=== PATIENT | male | born 1935 | race Caucasian/White ===

== ENCOUNTER 2021-09-10 06:52 | Emergency (ER) | payer OTHER, SELFPAY ==
[2021-09-10 06:55] VITALS: PULSE 78; RESP 17
[2021-09-10 06:57] VITALS: BP 179/78; PULSE 73; RESP 17; TEMP 36.8; O2SAT 97
--- NOTE | 2021-09-10 07:26 | ED.EPISTAXIS ---
HPI - Epistaxis General Chief complaint: Epistaxis Stated complaint: nose bleed Time Seen by Provider: 09/10/21 07:24 Source: patient Related Data Home Medications Medication Instructions Recorded Confirmed allopurinol 09/10/21 amlodipine-valsartan tablet 09/10/21 atorvastatin 09/10/21 nitroglycerin mg 09/10/21 rivaroxaban [Xarelto] mg 09/10/21 tamsulosin mg PO 09/10/21 valsartan 09/10/21 Allergies Allergy/AdvReac Type Severity Reaction Status Date / Time No Known Allergies Allergy Verified 09/10/21 06:59 Course Vital Signs Vital signs: Vital Signs Pulse Rate 78 09/10/21 06:55 Respiratory Rate 17 09/10/21 06:55 Temperature 36.8 C 09/10/21 06:57 Pulse Rate 73 09/10/21 06:57 Respiratory Rate 17 09/10/21 06:57 Blood Pressure 179/78 H 09/10/21 06:57 Pulse Oximetry 97 09/10/21 06:57 Discharge Plan Discharge Prescriptions: No Action atorvastatin 40 mg tablet RF: 0 tamsulosin 0.4 mg capsule PO RF: 0 nitroglycerin 0.4 mg tablet, sublingual RF: 0 allopurinol 300 mg tablet RF: 0 valsartan 160 mg tablet RF: 0 amlodipine-valsartan 5-160 mg tablet RF: 0 Xarelto 20 mg tablet RF: 0
--- NOTE | 2021-09-10 07:47 | ED.EPISTAXIS ---
HPI - Epistaxis General Chief complaint: Epistaxis Stated complaint: nose bleed Time Seen by Provider: 09/10/21 07:24 Source: patient and family Mode of arrival: ambulatory Limitations: no limitations History of Present Illness HPI Narrative: Patient presents with left nasal bleed started few minutes prior to arrival to the emergency room. Stopped on arrival. Currently patient on Xarelto. Patient denies any trauma Related Data Home Medications Medication Instructions Recorded Confirmed allopurinol 09/10/21 amlodipine-valsartan tablet 09/10/21 atorvastatin 09/10/21 nitroglycerin mg 09/10/21 rivaroxaban [Xarelto] mg 09/10/21 tamsulosin mg PO 09/10/21 valsartan 09/10/21 Allergies Allergy/AdvReac Type Severity Reaction Status Date / Time No Known Allergies Allergy Verified 09/10/21 06:59 Review of Systems Review of Systems: CONSTITUTIONAL: Denies fever, chills, or sweats. EYES: Denies visual changes, redness, or discharge. ENT: Denies rhinorrhea, congestion, sore throat, or otalgia. CARDIOVASCULAR: Denies chest pain, palpitations, or edema. RESPIRATORY: Denies cough or dyspnea. GASTROINTESTINAL: Denies abdominal pain, nausea, vomiting, or diarrhea. GENITOURINARY: Denies dysuria or hematuria. SKIN: Denies rash or itching. MUSCULOSKELETAL: Denies back pain, joint pain, or myalgia. NEUROLOGIC: Denies headache, numbness, or weakness. PSYCHIATRIC: Denies anxiety or depression. Exam Narrative: General appearance: Well-developed, well-nourished Skin: Normal color Head: Normocephalic, nontraumatic Eyes: Clear conjunctiva ENT: Oropharynx normal, ears normal, nasal exam showed dried scant blood anteriorly. No active bleeding Chest and respiratory: Airway patent, no respiratory distress, no accessory muscle use Heart: Regular rate/rhythm Neurologic: Alert and oriented ?3, MICROBIOLOGY LAB ANALYST is normal as tested, no gross motor deficit Course Course Emergency Course: Improved Vital Signs Vital signs: Vital Signs Pulse Rate 78 09/10/21 06:55 Respiratory Rate 17 09/10/21 06:55 Temperature 36.8 C 09/10/21 06:57 Pulse Rate 73 09/10/21 06:57 Respiratory Rate 17 09/10/21 06:57 Blood Pressure 179/78 H 09/10/21 06:57 Pulse Oximetry 97 09/10/21 06:57 Procedures Epistaxis Control left: Epistaxis Control Date: 09/10/21 Epistaxis Control Time: 07:58 Time Out Performed: Yes (5 minutes) Direct Inspection: yes and unable to visualize Cautery Used: none Device Inserted: hemostatic balloon Patient Tolerated Procedure: well MDM - Epistaxis MDM Narrative Medical decision making narrative: CBC ordered. Patient requested nasal packing. Lab Data Result diagrams: 09/10/21 07:51 Labs: Lab Results 09/10/21 Range/Units 07:51 WBC 6.1 (4.5-10.0) K/mm3 RBC 4.09 L (4.6-6.20) M/mm3 Hgb 13.4 L (14.0-18.0) g/dL Hct 38.2 L (42.0-52.0) % MCV 93.4 (80-100) fl MCH 32.8 (26-34) pg MCHC 35.1 (32-36) g/dl RDW 12.6 (11.5-14.5) % Plt Count 211 (150-375) k/mm3 MPV 8.9 (7.4-10.4) fl Immature Gran % (Auto) 0.2 (0-0.5) % Neut % (Auto) 65.8 (45.5-73.1) % Lymph % (Auto) 26.9 (18.3-44.2) % [place] % (Auto) 5.7 (2.6-8.5) % Eos % (Auto) 1.1 (0-4.4) % Baso % (Auto) 0.3 (0.2-1.2) % Lymph # (Auto) 1.64 (0.9-3.2) K/mm3 [place] # (Auto) 0.4 (0.1-0.6) K/mm3 Eos # (Auto) 0.1 (0-0.3) K/mm3 Baso # (Auto) 0.0 (0.0-0.1) K/mm3 Abs Immat Gran (auto) 0.01 (0.00-0.031) K/mm3 Absolute Neuts (auto) 4.0 (1.3-6.7) K/mm3 Absolute Nucleated RBC 0.0 (0.0-0.012) K/mm3 Nucleated RBC % 0.0 (0.0-0.2) % Critical Care Time Critica
--- NOTE | 2021-09-10 07:54 | PC.NURSE ---
Dr. Yanes removed nasal clamp, no bleeding present, Dr. Yanes applied rhino rocket 7.5 in patients nose, pt tolerated well will monitor for 30mins, pt aware
[2021-09-10 07:56] LABS: Basophils Percent Auto 0.3 % (0.2-1.2); Eosinophils Absolute Auto 0.1 K/mm3 (0-0.3); Eosinophils Percent Auto 1.1 % (0-4.4); Hematocrit 38.2 % (42.0-52.0); Hemoglobin 13.4 g/dL (14.0-18.0); Immature Granulocyte Absolute 0.01 K/mm3 (0.00-0.031); Immature Granulocyte Percent A 0.2 % (0-0.5); Lymphocytes Absolute Auto 1.64 K/mm3 (0.9-3.2); Lymphocytes Percent Auto 26.9 % (18.3-44.2); Mean Corpuscular HGB Conc 35.1 g/dl (32-36); Mean Corpuscular Hemoglobin 32.8 pg (26-34); Mean Corpuscular Volume 93.4 fl (80-100); Mean Platelet Volume 8.9 fl (7.4-10.4); Monocytes Absolute Auto 0.4 K/mm3 (0.1-0.6); Monocytes Percent Auto 5.7 % (2.6-8.5); Neutrophils Percent Auto 65.8 % (45.5-73.1); Platelet Count Result 211 k/mm3 (150-375); Red Blood Count 4.09 M/mm3 (4.6-6.20); Red Cell Distribution Width 12.6 % (11.5-14.5); White Blood Count 6.1 K/mm3 (4.5-10.0)
[2021-09-10 08:41] VITALS: BP 172/73; PULSE 56; RESP 18; O2SAT 99
== END 2021-09-10 08:43 | disposition home or self-care (01) ==
PROVIDERS: Emergency Provider Emergency Medicine; PCP Internal Medicine
DX: R04.0 Epistaxis (principal); Z79.01 Long term (current) use of anticoagulants
CPT/HCPCS: 30901; 36415; 85025; 99283

== ENCOUNTER 2021-10-24 18:38 | Emergency (ER) | payer OTHER, SELFPAY ==
--- NOTE | ~2021-10-24 | XR_ITS ---
EXAMINATION: XR chest 2V DATE: 10/24/2021 19:13 INDICATION: Fatigue and cough TECHNIQUE: PA and lateral views of the chest are obtained. COMPARISON: 07/17/2016 FINDINGS: There are minimal opacities of the lung bases. There is no pleural effusion or pneumothorax . The heart size is normal. There are changes of interval cardiac surgery. There is moderate thoracic spondylosis. IMPRESSION: 1. Minimal bibasilar airspace opacities, consistent with atelectasis versus pneumonia. Reviewed, dictated and finalized at location F. GER REPORT IMPRESSION: 1. Minimal bibasilar airspace opacities, consistent with atelectasis versus pne umonia.
[2021-10-24 18:56] VITALS: BP 107/48; PULSE 69; RESP 16; TEMP 37.3; O2SAT 97
[2021-10-24 19:24] LABS: Alanine Aminotransferase 34 U/L (4-50); Albumin Level 3.4 g/dL (3.5-5.1); Alkaline Phosphatase 227 U/L (38-126); Anion Gap 8 mmol/L (8-16); Aspartate Amino Transferase 48 U/L (17-59); Bilirubin,Total 1.3 mg/dL (0.2-1.3); Blood Urea Nitrogen 21 mg/dL (9-20); Calcium 8.7 mg/dL (8.4-10.2); Carbon Dioxide 24 mmol/L (22-30); Chloride 99 mmol/L (98-107); Estimated CRCL calculation 44 ml/min; Estimated Glomerular Filt Rate > 60; Glucose 138 mg/dL (65-110); Potassium 4.5 mmol/L (3.4-5.0); Sodium 131 mmol/L (137-145)
[2021-10-24 19:25] LABS: Hematocrit 40.8 % (42.0-52.0); Hemoglobin 13.8 g/dL (14.0-18.0); Mean Corpuscular HGB Conc 33.8 g/dl (32-36); Mean Corpuscular Hemoglobin 31.9 pg (26-34); Mean Corpuscular Volume 94.2 fl (80-100); Mean Platelet Volume 9.8 fl (7.4-10.4); Platelet Count Result 222 k/mm3 (150-375); Red Blood Count 4.33 M/mm3 (4.6-6.20); Red Cell Distribution Width 12.8 % (11.5-14.5); White Blood Count 7.5 K/mm3 (4.5-10.0)
[2021-10-24 19:51] LABS: Band Neutrophils Percent 6 % (0-6); Lymphocytes Absolute Manual 0.82 K/mm3 (1.1-4.5); Monocytes Absolute Manual 0.37 K/mm3 (0.1-0.90); Monocytes Percent Manual 5 % (3-9); Neutrophils Percent Manual 78 % (46-73); Platelet Estimate Adequate (Adequate); Total Cells Counted 100
[2021-10-24 21:48] VITALS: BP 106/49; PULSE 66; RESP 18; TEMP 36.5; O2SAT 98
[2021-10-24 22:55] VITALS: BP 119/67; PULSE 64; RESP 18; O2SAT 99
[2021-10-24 23:38] VITALS: BP 102/61; PULSE 63; PULSE 65; RESP 18; O2SAT 97
[2021-10-24] MEDS: SODIUM CHLORIDE 0.9% IV 1,000 ML 999 ML IV CONT (23:53)
[2021-10-25 00:15] VITALS: BP 116/62; PULSE 62; RESP 12; O2SAT 97
[2021-10-25 00:45] VITALS: BP 131/63; PULSE 62; RESP 14; O2SAT 98
--- NOTE | 2021-10-25 00:55 | ED.GENADULT ---
HPI - General Adult General Chief complaint: Weakness Stated complaint: COVID PERSISENT SYMPTOMS Time Seen by Provider: 10/24/21 23:15 History of Present Illness HPI narrative: Patient is 85-year-old gentleman who presents the emergency department with chief complaint of generalized weakness. The patient reports he was diagnosed with COVID-19 on 12 October. Patient states that he has still had a cough has been having generalized weakness. Patient states that his fevers are doing better reports that he feels like he may be dehydrated because he had a lot of diarrhea during all of this. Patient denies chest pain denies shortness of breath. Related Data Home Medications Medication Instructions Recorded Confirmed allopurinol 09/10/21 amlodipine-valsartan tablet 09/10/21 atorvastatin 09/10/21 nitroglycerin mg 09/10/21 rivaroxaban [Xarelto] mg 09/10/21 tamsulosin mg PO 09/10/21 valsartan 09/10/21 Allergies Allergy/AdvReac Type Severity Reaction Status Date / Time No Known Allergies Allergy Verified 09/10/21 06:59 Review of Systems Review of Systems: A 10 system review of systems was completed on the patient and is negative except for what is stated in the HPI. Nursing and ancillary documentation was reviewed. Exam Narrative: GENERAL: Well-appearing, well-nourished, and in no acute distress. HEAD: Normocephalic, atraumatic. EYES: PERRLA and EOMI. ENT: Nares clear, no rhinorrhea or epistaxis. Mucous membranes moist. NECK: Supple. CHEST: Clear to auscultation. No respiratory distress. HEART: Regular rate and rhythm. No murmur heard. Normal peripheral pulses. ABDOMEN: Soft, nontender, nondistended, normal active bowel sounds. EXTREMITIES: Normal range of motion. No edema. SKIN: Warm, dry, no rash. NEURO: No focal deficits. Alert and oriented x3. PSYCH: Normal mood and affect. Course Vital Signs Vital signs: Vital Signs Temperature 37.3 C 10/24/21 18:56 Pulse Rate 69 10/24/21 18:56 Respiratory Rate 16 10/24/21 18:56 Blood Pressure 107/48 L 10/24/21 18:56 Pulse Oximetry 97 10/24/21 18:56 Temperature 36.5 C 10/24/21 21:48 Pulse Rate 62 10/25/21 00:45 Respiratory Rate 14 10/25/21 00:45 Blood Pressure 131/63 10/25/21 00:45 Pulse Oximetry 98 10/25/21 00:45 Medical Decision Making Vital Signs Vital Signs: Vital Signs Temperature 37.3 C 10/24/21 18:56 Pulse Rate 69 10/24/21 18:56 Respiratory Rate 16 10/24/21 18:56 Blood Pressure 107/48 L 10/24/21 18:56 Pulse Oximetry 97 10/24/21 18:56 Temperature 36.5 C 10/24/21 21:48 Pulse Rate 62 10/25/21 00:45 Respiratory Rate 14 10/25/21 00:45 Blood Pressure 131/63 10/25/21 00:45 Pulse Oximetry 98 10/25/21 00:45 Lab Data Result diagrams: 10/24/21 19:06 10/24/21 19:06 Labs: Lab Results 10/24/21 10/24/21 Range/Units 19:06 19:06 WBC 7.5 (4.5-10.0) K/mm3 RBC 4.33 L (4.6-6.20) M/mm3 Hgb 13.8 L (14.0-18.0) g/dL Hct 40.8 L (42.0-52.0) % MCV 94.2 (80-100) fl MCH 31.9 (26-34) pg MCHC 33.8 (32-36) g/dl RDW 12.8 (11.5-14.5) % Plt Count 222 (150-375) k/mm3 MPV 9.8 (7.4-10.4) fl Immature Gran % (Auto) Not Reportable Neut % (Auto) Not Reportable Lymph % (Auto) Not Reportable [place] % (Auto) Not Reportable Eos % (Auto) Not Reportable Baso % (Auto) Not Reportable Lymph # (Auto) Not Reportable [place] # (Auto) Not Reportable Eos # (Auto) Not Reportable Baso # (Auto) Not Reportable Abs Immat Gran (auto) Not Reportable Absolute Neuts (auto) Not Reportable Absolute Nucleated RBC Not Reportable Total Counted 100 Neutrophils % (Manual) 78 H (46-73) % Band Neutrophils % 6 (0-6) % Lymphocytes % (Manual) 11.0 L (18-44) % Monocytes % (Manual) 5 (3-9) % Nucleated RBC % Not Reportable Abs Neuts (Manual) 6.30 (1.3-6.7) K/mm3 Abs Lymphs (Manual) 0.82
--- NOTE | 2021-10-25 01:30 | PC.NURSE ---
Ambulatory assessment with pulse ox, no desaturations noted. Pt reports improvement.
[2021-10-25 01:43] VITALS: BP 105/63; PULSE 68; RESP 12; O2SAT 98
== END 2021-10-25 01:45 | disposition home or self-care (01) ==
PROVIDERS: Emergency Medicine; Emergency Provider Emergency Medicine; PCP Internal Medicine
DX: U07.1 COVID-19 (principal); J12.82 Pneumonia due to coronavirus disease 2019
CPT/HCPCS: 36415; 71046; 80053; 85025; 96360; 99284; J7030

== ENCOUNTER 2021-10-25 19:05 | Inpatient (IN) | payer OTHER, SELFPAY ==
[2021-10-25] VITALS (8 sets, daily range): BP systolic 137–163; BP diastolic 73–82; PULSE 60–66; RESP 12–20; TEMP 36.6–36.8; O2SAT 98–100; BMI 28.3
--- NOTE | ~2021-10-25 | XR_ITS ---
EXAMINATION: XR UGIAC w small bowel EXAM DATE: 10/27/2021 13:46 INDICATION: Weight loss, esophageal stricture. TECHNIQUE: Image Scientist radiograph was acquired. Single contrast barium upper GI with small bowel was initia lly requested. Patient was believed to be able to tolerate double contrast exam and so this was perfo rmed according to patient abilities. Upper GI examination and small bowel series was performed by rad iologist Jai Purdy M.D. Pulsed dose reduction fluoroscopy was used with fluoroscopic time of 0.2 m inutes. The DAP for this procedure was 0.4 Gycm2. A total of 51 images obtained for the exam. Ther e is no prior study for comparison. FINDINGS: There are some tertiary contractions, mild presbyesophagus. The distal aspect of the esopha jerson did appear somewhat diffusely narrowed without shouldering to suggest any underlying mass. The st omach has a normal appearance without evidence of mass lesion, ulceration or filling defect. There i s normal rugal fold pattern. The duodenum and duodenal sweep are normal in appearance. Ileal and jejunal fold patterns are normal. There is no small bowel wall thickening or mass effect d isplacing small bowel. There are no intraluminal filling defects identified. There is no small teofilo l dilation. Terminal ileum is normal in appearance. Contrast reached the colon by 30 minutes time. IMPRESSION: Mild presbyesophagus. Mild diffuse narrowing distal esophagus without shouldering to sugg est underlying aspirate, could be reflux related narrowing. Unremarkable small bowel exam. Reviewed, dictated and finalized at location A. HANGER IMPRESSION: Mild presbyesophagus. Mild diffuse narrowing distal esophagus witho ut shouldering to suggest underlying aspirate, could be reflux related narrowin g. Unremarkable small bowel exam.
--- NOTE | ~2021-10-25 | XR_ITS ---
EXAMINATION: XR chest 1V portable DATE: 10/27/2021 07:05 INDICATION: Cough. Weight loss. TECHNIQUE: A single frontal view of the chest was obtained. COMPARISON: Chest single view 10/25/2021, chest 2 views 10/24/2021, chest CT 02/09/2018 FINDINGS: There are patchy airspace opacities in all lung zones bilaterally. No pleural effusion or p neumothorax. The heart size is normal. Median sternotomy wires are noted. IMPRESSION: 1. Stable diffuse lung disease, consistent with COVID-19 pneumonia. Reviewed, dictated and finalized at location B. OLEUM REFINING EQUIPMENT OPERATOR
--- NOTE | ~2021-10-25 | XR_ITS ---
EXAMINATION: XR chest 1V portable INDICATION: Midsternal chest pain, COVID 19 positive TECHNIQUE: Portable AP chest at 1923 hours COMPARISON: 10/24/2021 FINDINGS: Bibasilar airspace opacities persist without significant change. There are also minimal air space opacities in the mid and upper lung zones better appreciated on today's examination. There is n o pleural effusion or pneumothorax. The heart size is normal. Changes of cardiac surgery are noted. IMPRESSION: 1. Mild diffuse lung disease, likely pneumonia. Reviewed, dictated and finalized at location F. COIN DEALER
--- NOTE | 2021-10-25 19:17 | ECG_ITS ---
Measurements Intervals [place] Rate: 61 P: -87 FL: 164 QRS: -52 QRSD: 97 T: -13 QT: 397 QTc: 400 Interpretive Statements ECTOPIC ATRIAL RHYTHM INCOMPLETE RIGHT BUNDLE BRANCH BLOCK LEFT ANTERIOR FASCICULAR BLOCK HIGH LATERAL ST ELEVATION MYOCARDIAL INJURY- ACUTE ABNORMAL ECG Electronically Signed On 10-25-2021 20:21:14 SENIOR GAME ADVISOR by Amari Valera D.O.
[2021-10-25] MEDS: HEPARIN SODIUM 5,000 UNITS/ML VIAL 4800 UNITS IV PUSH (19:35)
--- NOTE | 2021-10-25 19:35 | ED.CHESTPAIN ---
HPI - Chest Pain General Chief Complaint: Chest Pain Stated Complaint: chest pain Time Seen by Provider: 10/25/21 19:28 Source: patient, EMS and RN notes reviewed Mode of arrival: EMS Limitations: no limitations History of Present Illness HPI narrative: Patient is 85 years old white male brought to the emergency room by ambulance with sudden onset of retrosternal chest pain radiating to his back started 30 minutes prior to arrival to the emergency room. Patient reported the pain is easing down after 2 nitroglycerin and aspirin. History of triple bypass, coronary stents, hypertension. Patient on aspirin and Xarelto. Patient is DNR. Last COVID-vaccine January 2021 EKG read by me at 19:25 showed STEMI, anterior myocardial infarction, STEMI protocol started immediately. Related Data Home Medications Medication Instructions Recorded Confirmed allopurinol 09/10/21 amlodipine-valsartan tablet 09/10/21 atorvastatin 09/10/21 nitroglycerin mg 09/10/21 rivaroxaban [Xarelto] mg 09/10/21 tamsulosin mg PO 09/10/21 valsartan 09/10/21 Allergies Allergy/AdvReac Type Severity Reaction Status Date / Time No Known Allergies Allergy Verified 10/25/21 19:54 Review of Systems Review of Systems: CONSTITUTIONAL: Denies fever, chills, or sweats. EYES: Denies visual changes, redness, or discharge. ENT: Denies rhinorrhea, congestion, sore throat, or otalgia. CARDIOVASCULAR: Denies chest pain, palpitations, or edema. RESPIRATORY: Denies cough or dyspnea. GASTROINTESTINAL: Denies abdominal pain, nausea, vomiting, or diarrhea. GENITOURINARY: Denies dysuria or hematuria. SKIN: Denies rash or itching. MUSCULOSKELETAL: Denies back pain, joint pain, or myalgia. NEUROLOGIC: Denies headache, numbness, or weakness. PSYCHIATRIC: Denies anxiety or depression. Exam Narrative: General appearance: Well-developed, well-nourished Skin: Normal color Head: Normocephalic, nontraumatic Eyes: Clear conjunctiva ENT: Oropharynx normal, ears normal, nose normal Neck: Supple, nontender Chest and respiratory: Airway patent, no respiratory distress, no accessory muscle use Heart: Regular rate/rhythm Abdomen: Soft, nontender, no organomegaly, quiet bowel sounds Vascular: Normal peripheral pulses, normal capillary refill. Musculoskeletal: Normal range of motion, nontender back Neurologic: Alert and oriented ?3, COMMERCIAL SALES MANAGER is normal as tested, no gross motor deficit Course Course Emergency Course: Stable Vital Signs Vital signs: Vital Signs Temperature 36.6 C 10/25/21 19:08 Pulse Rate 62 10/25/21 19:08 Respiratory Rate 17 10/25/21 19:08 Blood Pressure 163/79 H 10/25/21 19:08 Pulse Oximetry 98 10/25/21 19:08 Temperature 36.6 C 10/25/21 19:08 Pulse Rate 64 10/25/21 20:02 Respiratory Rate 17 10/25/21 20:02 Blood Pressure 156/82 H 10/25/21 20:02 Pulse Oximetry 100 10/25/21 20:02 MDM - Chest Pain MDM Narrative Medical decision making narrative: EKG showing acute anterior myocardial infarction Differential Diagnosis Differential diagnosis: Likely st elevation myocardial infarction Lab Data Result diagrams: 10/25/21 19:42 10/25/21 19:42 Labs: Lab Results 10/25/21 10/25/21 10/25/21 Range/Units 19:42 19:42 19:42 WBC Pending RBC Pending Hgb Pending Hct Pending MCV Pending MCH Pending MCHC Pending RDW Pending Plt Count Pending MPV Pending Immature Gran % (Auto) Pending Neut % (Auto) Pending Lymph % (Auto) Pending [place] % (Auto) Pending Eos % (Auto) Pending Baso % (Auto) Pending Lymph # (Auto) Pending [place] # (Auto) Pendi
[2021-10-25] MEDS: MORPHINE SULFATE (*CRX) 4 MG/ML INJ IV PUSH (19:43)
[2021-10-25] MEDS: ONDANSETRON INJ 4 MG/2 ML VIAL IV PUSH (19:43)
[2021-10-25] MEDS: SODIUM CHLORIDE 0.9% IV 1,000 ML 999 ML IV CONT (19:47)
--- NOTE | 2021-10-25 19:49 | PC.NURSE ---
CODE STEMI: OVERHEAD CALLED: 1930 NICK SENT: 1931 [employer] GROUNDS SUPERINTENDENT CALLED DR. CANALES: 1933 ROCIO CALLED ON STANDBY: 1934
[2021-10-25] MEDS: PANTOPRAZOLE SODIUM IV 40 MG VIAL IV PUSH (19:57)
[2021-10-25] MEDS: TICAGRELOR 90 MG TABLET 180 MG PO (19:57)
[2021-10-25] MEDS: NITROGLYCERIN SL 0.4 MG TABLET SUBLINGUAL (20:01)
[2021-10-25 20:05] LABS: Basophils Percent Auto 0.2 % (0.2-1.2); Eosinophils Percent Auto 0.1 % (0-4.4); Hematocrit 38.9 % (42.0-52.0); Hemoglobin 13.2 g/dL (14.0-18.0); Immature Granulocyte Absolute 0.07 K/mm3 (0.00-0.031); Immature Granulocyte Percent A 0.8 % (0-0.5); Lymphocytes Absolute Auto 1.63 K/mm3 (0.9-3.2); Lymphocytes Percent Auto 19.4 % (18.3-44.2); Mean Corpuscular HGB Conc 33.9 g/dl (32-36); Mean Corpuscular Hemoglobin 31.9 pg (26-34); Monocytes Absolute Auto 0.3 K/mm3 (0.1-0.6); Monocytes Percent Auto 3.3 % (2.6-8.5); Neutrophils Absolute Auto 6.4 K/mm3 (1.3-6.7); Neutrophils Percent Auto 76.2 % (45.5-73.1); Platelet Count Result 217 k/mm3 (150-375); Red Blood Count 4.14 M/mm3 (4.6-6.20); White Blood Count 8.4 K/mm3 (4.5-10.0)
--- NOTE | 2021-10-25 20:11 | PC.NURSE ---
photo lab manager arrived to transport pt.
[2021-10-25 20:16] LABS: Alanine Aminotransferase 38 U/L (4-50); Albumin Level 3.2 g/dL (3.5-5.1); Alkaline Phosphatase 240 U/L (38-126); Anion Gap 11 mmol/L (8-16); Aspartate Amino Transferase 51 U/L (17-59); Bilirubin,Total 1.3 mg/dL (0.2-1.3); Blood Urea Nitrogen 22 mg/dL (9-20); Calcium 8.6 mg/dL (8.4-10.2); Carbon Dioxide 22 mmol/L (22-30); Chloride 101 mmol/L (98-107); Estimated CRCL calculation 48 ml/min; Estimated Glomerular Filt Rate > 60; Glucose 148 mg/dL (65-110); Lipase 372 U/L (23-300); Potassium 3.9 mmol/L (3.4-5.0); Sodium 134 mmol/L (137-145)
[2021-10-25 20:25] LABS: INR 1.2; Prothrombin Time 15.4 Seconds (11.1-14.7)
[2021-10-25 20:26] LABS: Partial Thromboplastin Time 30.3 SECONDS (22.3-36.8)
[2021-10-25 20:27] LABS: Troponin I 0.032 ng/mL (0.000-0.034)
[2021-10-25 21:04] LABS: Burr Cells 2+ (NORMAL); Platelet Estimate Adequate (Adequate)
--- NOTE | 2021-10-25 21:28 | PM.CNCAR ---
Assessment and Plan Additional Plan Lateral wall STEMI, s/p PCI with one MAURA, Hx of AF, Plan Admit to ICU, DAPT (ASA and plavix), DOAC restart tomorrow, statin, B-fadi. History of Present Illness History of Present Illness Consult date/time: 10/25/21 21:28 Consult reason: chest pain Reason For Visit: chest pain Narrative: 85 yrs old male presented with acute chest pain stared around 6 Pm, pain was retrosternal pressure non radiating, initally improved with NTG but recurrent and was persistent with N/V and hot sensation, pain improved on arrival to ER after morphine injection. Review of Systems Review of Systems: All systems reviewed & are unremarkable except as noted in HPI and below PMFSH Past Medical History Medical History (Updated 10/25/21 @ 21:34 by Silvano Daniel MD) Atrial fibrillation CAD (coronary artery disease) Surgical History Surgical History (Updated 10/25/21 @ 21:34 by Silvano Daniel MD) S/P CABG (coronary artery bypass graft) Family History Family History (Updated 10/25/21 @ 21:35 by Silvano Daniel MD) Other Acute myocardial infarction Meds Home Medications and Allergies Home Medications Medication Instructions Recorded Confirmed Type allopurinol 09/10/21 History amlodipine-valsartan tablet 09/10/21 History amoxicillin-pot clavulanate 1 tablet PO Q12H #14 tablet 09/10/21 Rx [Augmentin] atorvastatin 09/10/21 History nitroglycerin mg 09/10/21 History rivaroxaban [Xarelto] mg 09/10/21 History tamsulosin mg PO 09/10/21 History valsartan 09/10/21 History Allergies Allergy/AdvReac Type Severity Reaction Status Date / Time No Known Allergies Allergy Verified 10/25/21 19:54 Vital Signs Vital Signs - 24 hr 10/25/21 19:08 10/25/21 19:50 10/25/21 19:51 Temperature 36.6 C Pulse Rate 62 60 Respiratory Rate 17 20 Blood Pressure 163/79 H 155/73 H Pulse Oximetry 98 99 99 10/25/21 20:02 Temperature Pulse Rate 64 Respiratory Rate 17 Blood Pressure 156/82 H Pulse Oximetry 100 Exam Const: General: comfortable and no acute distress Other: Able to lie flat HENMT: General nose exam: Normal nares present and no epistaxis Mouth: Yes moist mucous membranes Eyes: Sclera: sclerae normal Pupils: Equal, round and reactive pupils present Neck: Neck: supple and no JVD Carotids: no bruits Resp: Auscultation: clear to auscultation bilaterally and lung sounds not diminished Other: No chest wall tenderness Cardio: Rate: regular rate Rhythm: regular rhythm Heart sounds: no gallops, no murmurs and no rubs GI: GI Palp: Yes Soft to palpation and No Tenderness to palpation present (GI) Auscultation: normal bowel sounds Skin: General skin exam: normal color, rashes and/or lesions noted and no erythema Other: Warm Neuro: Cranial nerves: Yes Equal, round and reactive pupils present Speech: normal speech Other: No obvious focal deficit or facial asymmetry Extrem: General: no edema Other: Normal capillary refills Intact distal pulses. Results Labs and Meds Result diagrams: 10/25/21 19:42 10/25/21 19:42 Lab results: Cardiac Enzymes 10/25/21 Range/Units 19:42 AST 51 (17-59) U/L Troponin I 0.032 (0.000-0.034) ng/mL Coagulation 10/25/21 Range/Units 19:42 PT 15.4 H (11.1-14.7) Seconds APTT 30.3 (22.3-36.8) SECONDS CBC 10/25/21 Range/Units 19:42 WBC 8.4 (4.5-10.0) K/mm3 RBC 4.14 L (4.6-6.20) M/mm3 Hgb 13.2 L (14.0-18.0) g/dL Hct 38.9 L (42.0-52.0) % Plt Count 217 (150-375) k/mm3 Lymph # (Auto) 1.63 (0.9-3.2) K/mm3 [place] # (Auto) 0.3 (0.1-0.6) K/mm3 Eos # (Auto) 0.0 (0-0.3) K/mm3 Baso # (Auto) 0.0 (0.0-0.1) K/mm3 Comprehensive Metabolic Panel 10/25/21 Range/Units 19:42 Sodium 134 L (137-145) mmol/L Potassium 3.9 (3.4-5.0) mmol/L Chloride 101 (98-107) mmol/L Carbon Dioxide 22 (22-30) mmol/L BUN 22 H (9-20) mg/d
--- NOTE | 2021-10-25 21:37 | WPDCARDPROC ---
Cardiac Cath Procedure Note Date of procedure:: 10/25/21 Performing physician:: Silvano Daniel MD Assessment and Plan Additional Plan PROCEDURES 1. LHC and coronary angiogram and Bypass graft angiogram 2. PCI to subtotally occluded D1 culprit lesion of STEMI INDICATION 1. STEMI lateral wall HISTORY: see HPI, 85 Yrs old with Hx of CABG presented with acute chest pain and found to have lateral wall STEMI PROCEDURE DETAILS Consent obtained, time out done and access site prepped and draped for femoral access Rt LOGISTICS LOSS PREVENTION MANAGER was accessed with modified Seldinger technique HEMODYNAMICS Aorta: 170/100 LV 170/20 ANGIOGRAPHIC FINDINGS Left main: normal gives LCX and LAD LAD: Give one large high diagonal with subtotal occlusion at proximal segment AMY 1 flow. LAD is subtotally occluded with stent in mid segment after D1 with competitive flow from MARTÍNEZ. LCX: gives early large OM1 than becomes small artery, OM1 has proximal 70% stenosis and supplied by SVG RCA: mid segment 70% stenosis, distal RCA patent stent, large dominant artery that gives PDA and rPL. MARTÍNEZ ot LAD: non selective angiogram patent MARTÍNEZ SVG to OM1: patent with no obstructive disease SVG to D1 is occluded PCI DETAILS Anticoagulation with heparin for target ACT 250 sec Antiplatelet therapy loaded with Brilinta 180 mg Guide catheter: CLS 4.0 Lesion crossed with Samurai wire and balloon angioplasty done with 2.5 * 12 that ruptured then another 2.5 & 12 NC balloon inflated to 24 KATHERINE because lesion was not yielding at lower pressure. Finally lesion responded. Stent was done with Xience Kaity 2.5 * 23 mm stent. Post dilation was done with 3.0 NC balloon at 18 KATHERINE. Pre-intervention: 99% occlusion subtotal occlusion AMY 1 flow, type C lesion, thrombus containing Post-intervention: 0% residual disease, AMY 3 flow COMPLICATION None Sheath removed and closure done successfully with angiosal CONCLUSION Successful PCI to D1 subtotal occlusion culprit lesion for STEMI with one MAURA 2.5 * 23 mm and post dilated with 3.0 NC balloon RECOMMENDATION DAPT, Statin, TTE
[2021-10-25 21:39] LABS: Activated Clotting Time 190 SEC (74-137)
--- NOTE | 2021-10-25 21:54 | ECG_ITS ---
Measurements Intervals [place] Rate: 62 P: [place]: 0 QRS: -40 QRSD: 94 T: 86 QT: 404 QTc: 413 Interpretive Statements SINUS RHYTHM WITH FIRST DEGREE AV BLOCK INCOMPLETE RIGHT BUNDLE BRANCH BLOCK ANTEROSEPTAL INFARCT, AGE INDETERMINATE INFERIOR INFARCT, AGE INDETERMINATE BORDERLINE ST-T WAVE ABNORMALITY- ANTEROLAT/HIGH LAT LEADS BASELINE ARTIFACT- I, II, III, AVR, AVL ABNORMAL ECG Electronically Signed On 10-26-2021 10:44:48 COMMUNITY HEALTH NURSE STAFF by Amari Valera D.O.
[2021-10-25 22:34] LABS: Basophils Percent Auto 0.3 % (0.2-1.2); Eosinophils Percent Auto 0.1 % (0-4.4); Hematocrit 34.9 % (42.0-52.0); Hemoglobin 11.9 g/dL (14.0-18.0); Immature Granulocyte Absolute 0.04 K/mm3 (0.00-0.031); Immature Granulocyte Percent A 0.6 % (0-0.5); Lymphocytes Absolute Auto 1.06 K/mm3 (0.9-3.2); Lymphocytes Percent Auto 14.7 % (18.3-44.2); Mean Corpuscular HGB Conc 34.1 g/dl (32-36); Mean Corpuscular Hemoglobin 31.8 pg (26-34); Mean Corpuscular Volume 93.3 fl (80-100); Mean Platelet Volume 9.5 fl (7.4-10.4); Monocytes Absolute Auto 0.2 K/mm3 (0.1-0.6); Monocytes Percent Auto 2.5 % (2.6-8.5); Neutrophils Absolute Auto 5.9 K/mm3 (1.3-6.7); Neutrophils Percent Auto 81.8 % (45.5-73.1); Platelet Count Result 187 k/mm3 (150-375); Red Blood Count 3.74 M/mm3 (4.6-6.20); Red Cell Distribution Width 12.9 % (11.5-14.5); White Blood Count 7.2 K/mm3 (4.5-10.0)
[2021-10-25 22:47] LABS: Anion Gap 9 mmol/L (8-16); Blood Urea Nitrogen 20 mg/dL (9-20); Calcium 7.8 mg/dL (8.4-10.2); Carbon Dioxide 17 mmol/L (22-30); Chloride 105 mmol/L (98-107); Estimated CRCL calculation 53 ml/min; Estimated Glomerular Filt Rate > 60; Glucose 146 mg/dL (65-110); Sodium 131 mmol/L (137-145)
[2021-10-25] MEDS: SODIUM CHLORIDE 0.9% IV 1,000 ML 125 ML IV CONT (23:00)
[2021-10-26] VITALS (14 sets, daily range): BP systolic 117–152; BP diastolic 65–91; PULSE 48–72; RESP 10–19; TEMP 36.6–37; O2SAT 95–100
--- NOTE | 2021-10-26 | ECHO_ITS ---
Patient Info Name: Tevin Mg Age: 85 years : 1935 Gender: Male Ht: 69 in Wt: 176 lbs BSA: 1.98 m2 HR: 57 bpm BP: 152 / 82 mmHg Heart Rhythm: Sinus Rhythm Exam Date: 10/26/2021 8:30 AM Exam Location: [facility] Patient Status: Inpatient Admit Date: 10/25/2021 Staff Ordering Physician: Silvano Daniel MD Air Gun Operator: Maksim Suggs, HENOK, RT Attending Provider: Silvano Daniel MD Exam Type: CA echo dop color flow w con Study Info Indications I22.8 - Subsequent ST elevation (STEMI) myocardial infarction of other sites Strain analysis performed. Complete two-dimensional, color flow and Doppler transthoracic echocardiogram is performed with contrast to opacify the left ventricle and to improve the deliniation of the left ventricle endocardial borders. Summary 1. Normal left ventricular size with mild concentric hypertrophy. There is akinesis of the mid and distal anteroseptal and anterolateral rodriguez, and akinesis of the apex. The ejection fraction by the BiPAP method was measured 33% and visually appears to be 30%. Grade 2 diastolic dysfunction is present. No thrombus is seen. 2. Left atrial chamber dimension is mildly enlarged. 3. There is mild tricuspid valve regurgitation. 4. Severe pulmonary hypertension, estimated pulmonary arterial systolic pressure is 73 mmHg. 5. Dilated inferior vena cava with >50% collapse upon inspiration consistent with elevated right atrial pressure, 15 mmHg. 6. Normal sinus rhythm. 7. Somewhat technically difficult study. Definity echo contrast used. Left Ventricle Left ventricular chamber dimension is normal. Left ventricular systolic function is severely reduced, estimated at 30-35%. There is mildly increased left ventricular wall thickness. Left ventricular septal wall motion is normal. The left ventricular diastolic function is grade II diastolic dysfunction. There is no thrombus visualized in the left ventricle. Global longitudinal strain is severely elevated at -10 %. Right Ventricle Right ventricular chamber dimension is normal. Right ventricular systolic function is normal. Left Atria Left atrial chamber dimension is mildly enlarged. Right Atria Right atrial chamber dimension is normal. Aortic Valve The aortic valve is trileaflet. There is mild aortic valve sclerosis. There is no aortic valve stenosis. There is trace aortic valve regurgitation. Pulmonic Valve The pulmonic valve is normal. There is no pulmonic valve stenosis. There is trace pulmonic regurgitation. Mitral Valve The mitral valve has normal leaflets. There is no mitral valve stenosis. There is trace mitral valve regurgitation. Tricuspid Valve The tricuspid valve leaflets are normal. There is no significant tricuspid valve stenosis. There is mild tricuspid valve regurgitation. Severe pulmonary hypertension, estimated pulmonary arterial systolic pressure is 73 mmHg. Pericardium/Pleural The pericardium appears normal. There is no pericardial effusion. Inferior Vena Cava Dilated inferior vena cava with >50% collapse upon inspiration consistent with elevated right atrial pressure, 15 mmHg. Aorta The aortic root size at the sinus of Valsalva is normal. The prox ascending aorta size is normal. Left Ventricular Outflow Tract Name Value Normal
[2021-10-26] MEDS: PERFLUTREN LIPID MICROSPHERES 1.5 ML VIAL DILUTED TO 10 ML TOTAL VOLUME IV PUSH (09:00)
--- NOTE | 2021-10-26 09:01 | ECG_ITS ---
Measurements Intervals [place] Rate: 56 P: 75 OK: 261 QRS: -28 QRSD: 87 T: 98 QT: 448 QTc: 434 Interpretive Statements SINUS BRADYCARDIA WITH FIRST DEGREE AV BLOCK CANNOT RULE OUT SEPTAL INFARCT, AGE INDETERMINATE CONSIDER INFERIOR INFARCT, AGE INDETERMINATE ST-T WAVE ABNORMALITY IN HIGH LATERAL LEADS- CONSIDER ISCHEMIA BASELINE ARTIFACT- I, II, AVR, AVL, AVF ABNORMAL ECG Electronically Signed On 10-26-2021 9:48:17 PAINTER AIRBRUSH by Amari Valera D.O.
--- NOTE | 2021-10-26 09:11 | WPDCNINT ---
Assessment and Plan Assessment and plan (1) ST elevation (STEMI) myocardial infarction: Qualifiers: Involved coronary artery: unspecified coronary artery Qualified Code(s): I21.3 - ST elevation (STEMI) myocardial infarction of unspecified site Code(s): I21.3 - ST elevation (STEMI) myocardial infarction of unspecified site Status: Acute Assessment and Plan: Status post PCI to subtotally occluded D1 culprit lesion of STEMI Currently asymptomatic Check echocardiogram today Dual antiplatelet therapy, statin, beta-fadi and ARB ordered (2) Atrial fibrillation: Code(s): I48.91 - Unspecified atrial fibrillation Status: Acute Assessment and Plan: Currently in sinus rhythm Patient is on beta-fadi and Xarelto Additional Plan DVT prophylaxis -patient is on Xarelto which will be resumed Cardiac diet Full code Will order PT OT, incentive spirometry Transfer out of ICU today Toe Trimmer Consult Note Consult date: 10/26/21 HPI: Tevin Mg is a 85 year old male with past medical history of coronary disease status post CABG around 4 years ago presented yesterday to ER with chief complaint of chest pain. Patient states his chest pain started around 6:00 p.m. while he was watching TV 10/ severe, pressure in quality, radiated to back, associated with nausea and vomiting but no shortness of breath palpitations or dizziness. No aggravating or relieving factors. In the ED patient was diagnosed with ST segment elevation LA and was taken to carpenter/labor. He underwent LHC and coronary angiogram and Bypass graft angiogram. PCI to subtotally occluded D1 culprit lesion of STEMI. Postprocedure he was admitted to ICU for further evaluation management. This morning when I saw the patient he is asymptomatic and states his chest pain is completely resolved. He states that he has some dizziness postprocedure when he came to ICU but now that too has resolved. Denies any other complaints. Review of system is positive for unable to take deep breaths although he denies any pain with deep breathing. All other systems were reviewed and were negative Review of Systems Review of Systems: All systems reviewed & are unremarkable except as noted in HPI and below [facility] Past Medical History Medical History (Updated 10/26/21 @ 09:14 by Biju Raymond MD) Atrial fibrillation CAD (coronary artery disease) Surgical History Surgical History S/P CABG (coronary artery bypass graft) Family History Family History Mother Acute myocardial infarction Cerebrovascular accident Hypertension Sibling Breast cancer Diabetes mellitus Social History Social History Smoking status: Former smoker Alcohol intake: current Drinks per week: 1 Substance use: never Spiritual care concerns: No Meds Home Medications and Allergies Home Medications Medication Instructions Recorded Confirmed Type allopurinol 300 mg PO DAILY 09/10/21 10/25/21 History atorvastatin 40 mg PO DAILY 09/10/21 10/25/21 History nitroglycerin 0.4 mg SUBLINGUAL Q5M PRN 09/10/21 10/25/21 History rivaroxaban [Xarelto] 20 mg PO HS 09/10/21 10/25/21 History tamsulosin 0.4 mg PO HS 09/10/21 10/25/21 History valsartan 160 mg PO DAILY 09/10/21 10/25/21 History Allergies Allergy/AdvReac Type Severity Reaction Status Date / Time No Known Allergies Allergy Verified 10/25/21 19:54 Vital Signs Vital Signs - 24 hr 10/25/21 19:08 10/25/21 19:50 10/25/21 19:51 Temperature 36.6 C Pulse Rate 62 60 Pulse Rate [Monitor] Respiratory Rate 17 20 Blood Pressure 163/79 H 155/73 H Pulse Oximetry 98 99 99 10/25/21 20:02 10/25/21 22:00 10/25/21 22:26 Temperature 36.8 C 36.8 C Pulse Rate 64 63 60 Pulse Rate [Monitor] 66 66 Respiratory Rate 17 12 20 Blood Pressure 156/82
--- NOTE | 2021-10-26 09:26 | PM.PNCARD ---
Progress Note: A&P Assessment and Plan (1) ST elevation (STEMI) myocardial infarction: Qualifiers: Involved coronary artery: unspecified coronary artery Qualified Code(s): I21.3 - ST elevation (STEMI) myocardial infarction of unspecified site Code(s): I21.3 - ST elevation (STEMI) myocardial infarction of unspecified site Status: Acute Assessment and Plan: Acute lateral AL 10/25/2021, found to have an occluded SVG to the diagonal. Large diagonal stented w/ a Xience Kaity 2.5 X 23 mm frug-eluting stent. Has a residual 70% RCA lesion. Doing well this morning hemodynamically Cont DAPT TRansfer to Tele today Change metoprolol to low-dose carvedilol due to bradycardia; may not be able to tolerate Cont Valsartan and atorvastatin Consider addressing the residual RCA stenosis at a later date (couple of weeks?) (2) Ischemic cardiomyopathy: Code(s): I25.5 - Ischemic cardiomyopathy Status: Acute Assessment and Plan: EF 30% or less by Echo, has had some sx c/w/ CHF recently (DAMON and exertional intolerance) and has an abnml CXR. Check CXR and BNP tmr At risk of sudden cardiac . Discussed Life Vest; pt interested. (3) Bradycardia: Code(s): R00.1 - Bradycardia, unspecified Status: Acute Assessment and Plan: H/O chronic bradycardia, thought to be asymptomatic, no evidence of chronotropic incompetence by outpatient testing in past. However it may limit beta-fadi use. (4) HTN (hypertension): Code(s): I10 - Essential (primary) hypertension Status: Acute Assessment and Plan: Controlled (5) Atrial fibrillation: Code(s): I48.91 - Unspecified atrial fibrillation Status: Acute Assessment and Plan: History of paroxysmal atrial fibrillation, status post pulmonary vein isolation and exclusion of the left atrial appendage at the time of his bypass in 2018. Has been maintained on Xarelto since then, even though his risk of cardioembolic events is probably quite low.. I have not specifically looked for AFib with monitoring, but we have not seen any recurrent atrial fibrillation Patient has had epistaxis when he was on Plavix in the past with Xarelto Reasonable to stop Xarelto and use dual anti-platelet therapy for now, monitor for any AFib recurrence. Discussed w/ pt and son who are in agreement (6) Hyperlipidemia: Code(s): E78.5 - Hyperlipidemia, unspecified Status: Acute Assessment and Plan: Check lipids, atorvastatin increased to 80 mg qd. (7) History of COVID-19: Code(s): Z86.16 - Personal history of COVID-19 Status: Acute Assessment and Plan: Diagnosed October 11 with COVID, mild case, did not need hospitalization. However hasn't felt well No need for any specific therapy at this time (8) Hematuria: Code(s): R31.9 - Hematuria, unspecified Status: Acute Assessment and Plan: Developed hematuria today; says it is lightening up. No prior hx. Given more IV fluids Need to cont dual antiplatelet tx inthe setting of STEMI and new stent Xarelto DC'd Check U/A Consult urology (9) Weight loss: Code(s): R63.4 - Abnormal weight loss Status: Acute Assessment and Plan: Pt has had dysphagia for a while relieved w/ regurgitation. H/O esophageal stricture dilated several years ago. Also anorexia and diarrhea post-COVID w/ a 10 # weight loss in 2 weeks. Consult GI Dietary supplements Cont PPI Additional Plan Will also consult the hospitalists to assist in the care of this pt who is becoming more complex. Subjective Date/time seen: 10/26/21 09:26 Interval history: Follow-up for non-STEMI, stent placed in large diagonal 10/25/2021. Has a residual 70% stenosis of a large RCA. I follow the patient for his history of PAF, CAD, CABG in 2018 (MARTÍNEZ to the Left anterior descending, SVG to the OM, SVG to 1st diagonal, pulmona
[2021-10-26] MEDS: ASPIRIN 81 MG ENTERIC TABLET PO (09:45)
[2021-10-26] MEDS: ATORVASTATIN 40 MG TABLET 80 MG PO (09:45)
[2021-10-26] MEDS: allopurinoL 300 MG TABLET PO (09:45)
[2021-10-26] MEDS: VALSARTAN 160 MG TABLET PO (09:46)
[2021-10-26] MEDS: TAMSULOSIN HCL 0.4 MG CAPSULE PO ×2 (09:46→20:49)
[2021-10-26] MEDS: TICAGRELOR 90 MG TABLET PO ×2 (09:46→20:49)
[2021-10-26] MEDS: PANTOPRAZOLE 40 MG TABLET PO (09:46)
[2021-10-26] MEDS: SODIUM CHLORIDE 0.9% IV 1,000 ML 100 ML IV CONT (11:51)
[2021-10-26 12:57] LABS: Cholesterol 67 mg/dL (0-200)
[2021-10-26 13:09] LABS: LDL Cholesterol Direct 34 mg/dL
--- NOTE | 2021-10-26 18:45 | PC.NURSE ---
This patient, Tevin Mg, was transferred to [206-1] on 10/26/21 at 1845. Personal belongings sent with patient. Report given to [Pamela Huff RN]. Appropriate documentation sent with patient.
[2021-10-26 19:33] LABS: Hematocrit 36.5 % (42.0-52.0); Hemoglobin 12.6 g/dL (14.0-18.0); Mean Corpuscular HGB Conc 34.5 g/dl (32-36); Mean Corpuscular Hemoglobin 31.7 pg (26-34); Mean Corpuscular Volume 91.7 fl (80-100); Platelet Count Result 219 k/mm3 (150-375); Red Blood Count 3.98 M/mm3 (4.6-6.20); Red Cell Distribution Width 12.7 % (11.5-14.5); White Blood Count 7.5 K/mm3 (4.5-10.0)
--- NOTE | 2021-10-26 20:14 | PM.IMCN ---
Assessment and Plan Assessment and plan (1) ST elevation (STEMI) myocardial infarction: Qualifiers: Involved coronary artery: unspecified coronary artery Qualified Code(s): I21.3 - ST elevation (STEMI) myocardial infarction of unspecified site Code(s): I21.3 - ST elevation (STEMI) myocardial infarction of unspecified site Status: Acute Assessment and Plan: Management per primary service with Coreg, Arb, Xarelto, statin and Ticagrelor. (2) Ischemic cardiomyopathy: Code(s): I25.5 - Ischemic cardiomyopathy Status: Acute Assessment and Plan: Patient is on Coreg and angiotensin receptor fadi. Patient appears euvolemic and compensated. Patient is a candidate for LifeVest which Cardiology has discussing patient. (3) Weight loss: Code(s): R63.4 - Abnormal weight loss Status: Acute Assessment and Plan: Weight loss is likely multifactorial due to recent COVID infection and or recurrence of esophageal stricture given patient's report of dysphagia. Protonix has been started and GI has been consulted. (4) Hematuria: Qualifiers: Hematuria type: gross Qualified Code(s): R31.0 - Gross hematuria Code(s): R31.9 - Hematuria, unspecified Status: Acute Assessment and Plan: Reportedly improving. Hemoglobin is stable. Will continue home Flomax and monitor urine output closely. No evidence of obstructive uropathy at this point. (5) History of COVID-19: Code(s): Z86.16 - Personal history of COVID-19 Status: Acute Assessment and Plan: Symptoms have been improving. The patient does not have any hypoxia. Continue with supportive treatment only. (6) Bradycardia: Code(s): R00.1 - Bradycardia, unspecified Status: Acute Assessment and Plan: Improved after metoprolol was switched to Coreg. The patient is being monitored on telemetry. [facility] Data of Consult Consult date: 10/27/21 Requesting Physician: Silvano Daniel MD Primary Care Provider: Mauricio De La FuenteMD Consult Narrative Narrative: Tevin Mg is a 85 year old male with a past medical history of hypertension, hyperlipidemia, paroxysmal atrial fibrillation and 3 vessel CABG 2018 who presented to the ER with chest pain. The patient had been diagnosed with COVID October 12. He presented to the ER on afternoon of the reporting persistent weakness and cough. However, he admitted the cough had gotten better. He felt that he was likely dehydrated because he had been having significant diarrhea with his COVID symptoms. He denied any chest pain or shortness of breath at that time. He was subsequently discharged home in the business intelligence manager hours of the . He returned to the ER via EMS around 7:30 p.m. on the due to sudden onset of midsternal chest pain that occurred while he was at rest watching TV.. The patient reports the pain started suddenly approximately 30 minutes prior to arrival and was similar to his prior chest pain when he had his prior heart attacks. The pain was initially substernal and then started radiating to his back. The pain was crushing in nature and was improved after 2 nitroglycerin. He did have 1 episode of nausea and emesis associated with his chest pain. Denied having any diaphoresis. EKG on arrival to the ER demonstrated a STEMI of the lateral wall and patient was taken to chemical laboratory chief. Like chemical laboratory chief. The patient was found to have an occluded saphenous vein graft to diagonal that was stented. He also had residual 70% occlusion of the RCA with plan to readdress in a couple of weeks. Post catheterization the patient was not having any further chest pain. However he was having some bradycardia for which Cardiology changes metoprolol to low-dose Coreg. Echocardiogram was performed which demonstrated EF of 30% or less and patient incidentally had been having some dyspnea on exertion procee
[2021-10-26] MEDS: carvediloL 3.125 MG TABLET PO (20:50)
[2021-10-26] MEDS: MELATONIN 5 MG TABLET PO (23:36)
[2021-10-27] VITALS (15 sets, daily range): BP systolic 126–140; BP diastolic 62–88; PULSE 56–79; RESP 18–22; TEMP 36.2–36.5; O2SAT 97–98
[2021-10-27 05:28] LABS: Hematocrit 34.2 % (42.0-52.0); Hemoglobin 11.6 g/dL (14.0-18.0); Mean Corpuscular HGB Conc 33.9 g/dl (32-36); Mean Corpuscular Volume 94.2 fl (80-100); Mean Platelet Volume 10.1 fl (7.4-10.4); Platelet Count Result 186 k/mm3 (150-375); Red Blood Count 3.63 M/mm3 (4.6-6.20); Red Cell Distribution Width 12.9 % (11.5-14.5); White Blood Count 6.5 K/mm3 (4.5-10.0)
[2021-10-27 05:47] LABS: NT Pro B Type Natriuretic Pept 5260 pg/mL (5-100)
[2021-10-27 06:16] LABS: Alanine Aminotransferase 33 U/L (4-50); Albumin Level 2.6 g/dL (3.5-5.1); Alkaline Phosphatase 209 U/L (38-126); Anion Gap 7 mmol/L (8-16); Aspartate Amino Transferase 51 U/L (17-59); Bilirubin,Total 1.3 mg/dL (0.2-1.3); Blood Urea Nitrogen 14 mg/dL (9-20); Carbon Dioxide 20 mmol/L (22-30); Chloride 108 mmol/L (98-107); Estimated CRCL calculation 59 ml/min; Estimated Glomerular Filt Rate > 60; Glucose 114 mg/dL (65-110); Magnesium 1.7 mg/dL (1.6-2.3); Potassium 3.9 mmol/L (3.4-5.0); Sodium 135 mmol/L (137-145)
--- NOTE | 2021-10-27 07:23 | WPDGICN ---
Assessment and Plan Assessment and plan (1) Weight loss: Code(s): R63.4 - Abnormal weight loss Status: Acute Assessment and Plan: As mentioned above, he feels that he has lost his appetite. He gets full after a few bites. I will schedule him for upper GI small bowel series (2) Dysphagia: Code(s): R13.10 - Dysphagia, unspecified Status: Acute Assessment and Plan: he denies feeling food getting stuck but does feel as though there is constant build-up of phlegm that does not want to go down. I discussed his case with Dr. Rico. She feels it would be best to hold off on endoscopic procedures because his acute coronary event. I will order upper GI for today (3) Ischemic cardiomyopathy: Code(s): I25.5 - Ischemic cardiomyopathy Status: Acute Assessment and Plan: because of this, he needs to stay on his anticoagulants. I told the patient that if in 1 we do endoscopy, if we need to take biopsies or do dilatation, that there is a somewhat higher risk of bleeding. GI Consult Note Consult date/time: 10/27/21 07:23 HPI: Tevin Mg is a 85 year old male who presents emergency room with acute chest pain. He has a history of coronary artery disease and prior coronary bypass and is chronically anticoagulated. He was found to have acute ischemic disease and underwent cardiac catheterization. He was found have an occluded SVG. He was stented. He also has RCA stenosis which is going to be addressed in the next few weeks. Ejection fraction is about 30% I am asked to see him because he has been losing weight. He has a history of an esophageal stricture. He denies true dysphagia but feels that he gets full very quickly. He has a very warm feeling in his mid abdomen it feels at times though his food is bowling up there. He admits that most of this started after he came down with COVID about 2 weeks ago. He has simply lost his appetite and only feels like eating a few bites. He denies having difficulty swallowing food but feels as though phlegm or mucus is building up in his chest, perhaps the esophagus. He had esophageal dilatation in [employer] about 2 years ago and briefly was placed on an acid lowering medication but stopped taking it after a couple of months. He denies having significant heartburn. His bowels have been loose since he developed COVID but otherwise he had not had bowel issues. Review of Systems Review of Systems: All systems reviewed & are unremarkable except as noted in HPI and below PMFSH Past Medical History Medical History Atrial fibrillation Paroxysmal AFib status post ablation February 2008 BPH (benign prostatic hyperplasia) CAD (coronary artery disease) Gout History of COVID-19 Hyperlipidemia Ischemic cardiomyopathy Pneumonia due to COVID-19 virus (10/11/21) The patient's most recent COVID vaccine January 2021 Surgical History Surgical History S/P CABG (coronary artery bypass graft) (~2007) MARTÍNEZ to LAD, saphenous vein graft to obtuse marginal, saphenous vein graft to D1 Status post balloon dilatation of esophageal stricture Family History Family History Mother Acute myocardial infarction Cerebrovascular accident Hypertension Sibling Breast cancer Diabetes mellitus Social History Social History Social History: He has been to his current for 11 years. He has 2 sons and 3 stepsons. 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 He smoked briefly as a young adult. He denies any significant alcohol history or illicit substance use. Primary care physician: Dr. Mauricio De La Fuente Code status: Full code Healthcare power of criminal attorney: Aline
--- NOTE | 2021-10-27 08:14 | WPDURCON ---
Assessment and Plan Assessment and plan (1) Gross hematuria: Code(s): R31.0 - Gross hematuria Status: Acute Assessment and Plan: After cardiac catheterization with the patient on anti-platelet therapy/blood thinner. Hematuria is now resolved. Will see him back in the office to recheck his urine and decide on further evaluation and management (2) BPH associated with nocturia: Code(s): N40.1 - Benign prostatic hyperplasia with lower urinary tract symptoms; R35.1 - Nocturia Status: Acute Assessment and Plan: No current treatment recommended Urology Consult Note HPI Date Seen: 10/27/21 Requesting Physician: Silvano Daniel MD Primary Care Provider: Mauricio De La Fuente, Consult Narrative Narrative: Tevin Mg is a 85 year old male admitted for a myocardial infarction. He has undergone cardiac catheterization. He was given dual anti-platelet therapy. Postprocedure he noted gross hematuria. He has never seen blood in the urine before. His urine has now cleared and hematuria is resolved. He denies any dysuria. He does have some baseline enlarged prostate symptoms at home with hesitancy, nocturia, and slow urinary stream. He denies any history of kidney stones. He denies any dysuria or history of urinary tract infections. He is currently asymptomatic from a urinary tract standpoint Review of Systems Review of Systems: All systems reviewed & are unremarkable except as noted in HPI and below PMFSH Past Medical History Medical History Atrial fibrillation Paroxysmal AFib status post ablation February 2008 BPH (benign prostatic hyperplasia) CAD (coronary artery disease) Gout History of COVID-19 Hyperlipidemia Ischemic cardiomyopathy Pneumonia due to COVID-19 virus (10/11/21) The patient's most recent COVID vaccine January 2021 Surgical History Surgical History S/P CABG (coronary artery bypass graft) (~2007) MARTÍNEZ to LAD, saphenous vein graft to obtuse marginal, saphenous vein graft to D1 Status post balloon dilatation of esophageal stricture Family History Family History Mother Acute myocardial infarction Cerebrovascular accident Hypertension Sibling Breast cancer Diabetes mellitus Social History Social History Social History: He has been to his current for 11 years. He has 2 sons and 3 stepsons. 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 He smoked briefly as a young adult. He denies any significant alcohol history or illicit substance use. Primary care physician: Dr. Mauricio De La Fuente Code status: Full code Healthcare power of regulatory attorney: Cynthia () Smoking status: Former smoker Alcohol intake: current Drinks per week: 1 Substance use: never Spiritual care concerns: No Meds Home Medications and Allergies Home Medications Medication Instructions Recorded Confirmed Type allopurinol 300 mg PO DAILY 09/10/21 10/25/21 History atorvastatin 40 mg PO DAILY 09/10/21 10/25/21 History nitroglycerin 0.4 mg SUBLINGUAL Q5M PRN 09/10/21 10/25/21 History rivaroxaban [Xarelto] 20 mg PO HS 09/10/21 10/25/21 History tamsulosin 0.4 mg PO HS 09/10/21 10/25/21 History valsartan 160 mg PO DAILY 09/10/21 10/25/21 History Allergies Allergy/AdvReac Type Severity Reaction Status Date / Time No Known Allergies Allergy Verified 10/25/21 19:54 Vital Signs Vital Signs - 24 hr 10/26/21 10:00 10/26/21 12:00 10/26/21 14:00 Temperature 98.2 F Pulse Rate 59 L 58 L 69 Pulse Rate [Right Pedal (Dorsalis Pedis) Palpation] Respiratory Rate 18 16 Blood Pressure 151/76 H 117/65 Pulse Oximetry 99 95 10/26/21 16:00 10/26/21 18:00 10/26
--- NOTE | 2021-10-27 09:45 | PM.PNCARD ---
Progress Note: A&P Assessment and Plan (1) ST elevation (STEMI) myocardial infarction: Qualifiers: Involved coronary artery: unspecified coronary artery Qualified Code(s): I21.3 - ST elevation (STEMI) myocardial infarction of unspecified site Code(s): I21.3 - ST elevation (STEMI) myocardial infarction of unspecified site Status: Acute Assessment and Plan: Lateral ST-elevation NE 10/25/2021, found to have an occluded SVG to the diagonal. Status post a diagonal PCI/stenting using Xience Kaity 2.5 X 23 mm drug-eluting stent. Has a residual 70% RCA lesion. Cont DAPT -aspirin and ticagrelor Continue statin Continue to monitor on telemetry Staged PCI RCA in near future (2) Ischemic cardiomyopathy: Code(s): I25.5 - Ischemic cardiomyopathy Status: Acute Assessment and Plan: EF 30% or less by Echo Continue low-dose carvedilol. Monitor blood pressure and heart rate. Will change valsartan to sacubitrill/valsartan low-dose, dose to be optimized as tolerated. At risk of sudden cardiac . Discussed Life Vest. Patient to be discharged home on LifeVest. (3) Bradycardia: Code(s): R00.1 - Bradycardia, unspecified Status: Acute Assessment and Plan: H/O chronic bradycardia, thought to be asymptomatic, no evidence of chronotropic incompetence by outpatient testing in past. Continue low-dose beta-fadi. (4) HTN (hypertension): Code(s): I10 - Essential (primary) hypertension Status: Acute Assessment and Plan: Controlled (5) Atrial fibrillation: Code(s): I48.91 - Unspecified atrial fibrillation Status: Acute Assessment and Plan: History of paroxysmal atrial fibrillation, status post pulmonary vein isolation and exclusion of the left atrial appendage at the time of his bypass in 2018. Has been maintained on Xarelto since then, even though his risk of cardioembolic events is probably quite low.. Rivaroxaban has been discontinued after discussion with the patient and his family. (6) Hyperlipidemia: Code(s): E78.5 - Hyperlipidemia, unspecified Status: Acute Assessment and Plan: Continue statin (7) History of COVID-19: Code(s): Z86.16 - Personal history of COVID-19 Status: Acute Assessment and Plan: Diagnosed October 11 with COVID, mild case, did not need hospitalization. However hasn't felt well No need for any specific therapy at this time (8) Hematuria: Qualifiers: Hematuria type: gross Qualified Code(s): R31.0 - Gross hematuria Code(s): R31.9 - Hematuria, unspecified Status: Acute Assessment and Plan: Developed hematuria post PCI which has resolved now. Has been evaluated by Urology. Monitor H&H. (9) Weight loss: Code(s): R63.4 - Abnormal weight loss Status: Acute Assessment and Plan: Pt has had dysphagia for a while relieved w/ regurgitation. H/O esophageal stricture dilated several years ago. Also anorexia and diarrhea post-COVID w/ a 10 # weight loss in 2 weeks. Patient has been evaluated by Gastroenterology and is scheduled for upper GI. Further management as per Gastroenterology. Subjective Date/time seen: 10/27/21 09:45 Interval history: Follow-up for non-STEMI, stent placed in large diagonal 10/25/2021. Has a residual 70% stenosis of a large RCA. I follow the patient for his history of PAF, CAD, CABG in 2018 (MARTÍNEZ to the Left anterior descending, SVG to the OM, SVG to 1st diagonal, pulmonary vein isolation and left atrial appendage excision by Dr. Kohli at [facility]). History of mild sinus node dysfunction with bradycardia, prediabetes, hypertension and hyperlipidemia. Doing well on his last visit in June. Yesterday the patient had sudden onset of substernal chest pressure at rest, in came to the ER with bilateral myocardial infarction. He has the above procedure whic
[2021-10-27] MEDS: allopurinoL 300 MG TABLET PO (10:02)
[2021-10-27] MEDS: ASPIRIN 81 MG ENTERIC TABLET PO (10:02)
[2021-10-27] MEDS: ATORVASTATIN 40 MG TABLET 80 MG PO (10:03)
[2021-10-27] MEDS: carvediloL 3.125 MG TABLET PO ×2 (10:03→21:21)
[2021-10-27] MEDS: PANTOPRAZOLE 40 MG TABLET PO (10:04)
[2021-10-27] MEDS: VALSARTAN 160 MG TABLET PO (10:05)
[2021-10-27] MEDS: TICAGRELOR 90 MG TABLET PO ×2 (10:05→21:20)
[2021-10-27 11:25] LABS: EDCOVIDSCREEN Negative (Negative)
--- NOTE | 2021-10-27 16:29 | PM.IMPN ---
Progress Note: A&P Assessment and Plan (1) ST elevation (STEMI) myocardial infarction: Qualifiers: Involved coronary artery: unspecified coronary artery Qualified Code(s): I21.3 - ST elevation (STEMI) myocardial infarction of unspecified site Code(s): I21.3 - ST elevation (STEMI) myocardial infarction of unspecified site Status: Acute Assessment and Plan: Management per primary service with Coreg, Arb, Xarelto, statin and Ticagrelor. (2) Ischemic cardiomyopathy: Code(s): I25.5 - Ischemic cardiomyopathy Status: Acute Assessment and Plan: Patient is on Coreg and angiotensin receptor fadi. Patient appears euvolemic and compensated. Patient is a candidate for LifeVest which Cardiology has discussing patient. (3) Weight loss: Code(s): R63.4 - Abnormal weight loss Status: Acute Assessment and Plan: Weight loss is likely multifactorial due to recent COVID infection and or recurrence of esophageal stricture given patient's report of dysphagia. Protonix has been started and GI has been consulted. (4) Hematuria: Qualifiers: Hematuria type: gross Qualified Code(s): R31.0 - Gross hematuria Code(s): R31.9 - Hematuria, unspecified Status: Acute Assessment and Plan: Reportedly improving. Hemoglobin is stable. Will continue home Flomax and monitor urine output closely. No evidence of obstructive uropathy at this point. (5) History of COVID-19: Code(s): Z86.16 - Personal history of COVID-19 Status: Acute Assessment and Plan: Symptoms have been improving. The patient does not have any hypoxia. Continue with supportive treatment only. (6) Bradycardia: Code(s): R00.1 - Bradycardia, unspecified Status: Acute Assessment and Plan: Improved after metoprolol was switched to Coreg. The patient is being monitored on telemetry. Additional Plan 10/27/21 CAD w h/o CABG on Eliquis s/p PCI to SVG w planned staged PCI x RCA stenosis which is going to be addressed in the next few weeks. systolic CHF Ejection fraction is about 30% GI Urology and Cardio consulted GI series today pending urology recs Subjective Date/time seen: 10/27/21 16:29 pt seen this morning reports dx of covid 2 weeks ago, rapid performed to verification of recovery pt w dysphagia and weight loss for GI series today, endoscopy delayed due to STEMI upon admission pt feeling ok otherwise wo new complaints Exam Narrative: PHYSICAL EXAMINATION: GENERAL: Alert, oriented, no acute distress MENTAL STATUS: affect appropriate to mood EYES: Extraocular movements intact, no pallor EARS: External ears appear normal, hearing grossly normal NOSE: Normal and patent, no discharge MOUTH: Mucous membranes moist NECK: Supple, no JVD CHEST: Good respiratory effort, clear to auscultation HEART: Normal rate, regular rhythm, distant heart sounds ABDOMEN: Soft, nontender NEUROLOGICAL: Alert, oriented, normal speech, no gross motor deficits MUSCULOSKELETAL: No major deformity, no amputation EXTREMITIES: No pedal edema, no clubbing, no cyanosis SKIN: no rash on the exposed area, ecchymosis bilateral arms, R groin w intervention site soft no ecchymosis covered by gauze w tegaderm PSYCHIATRIC: Normal mood, appropriate affect Objective Data Vital Signs Vital Signs: Vital Signs - 24 hr 10/26/21 18:00 10/26/21 20:00 10/26/21 20:50 Temperature 97.9 F Pulse Rate 65 68 69 Pulse Rate [Right Pedal (Dorsalis Pedis) Palpation] 67 Respiratory Rate 12 Blood Pressure 127/65 Pulse Oximetry 98 10/26/21 22:00 10/27/21 00:00 10/27/21 02:00 Temperature 97.5 F L Pulse Rate 60 69 79 Pulse Rate [Right Pedal (Dorsalis Pedis) Palpation] 67 Respiratory Rate 22 H Blood Pressure 126/62 Pulse Oximetry 97 10/27/21 04:00 10/27/21 06:00 10/27/21 07:56 Temperature 97.7 F 97.2
[2021-10-27 19:06] LABS: Add Urine Microscopic? YES; Appearance Urine Clear (Clear); Bilirubin Urine Negative (Negative); Blood Urine Negative (Negative); Color Urine Amber (Yellow); Glucose Urine UA Negative (Negative); Ketones Urine Negative (Negative); Leukocyte Esterase Ur Negative LEU/UL (NEGATIVE); Mucus Urine Rare /lpf; Nitrate Urine Negative (Negative); Protein Urine Negative (Negative); RBC Urine 0-2 /hpf (0-2); Specific Grav Ur 1.023 (1.001-1.035); Squamous Epithelial Cell Urine Rare /hpf (Few); WBC Urine 0-3 /hpf (0-3)
[2021-10-27] MEDS: MELATONIN 5 MG TABLET PO (21:20)
[2021-10-27] MEDS: SACUBITRIL/VALSARTAN 24-26 MG TABLET 1 TAB PO (21:20)
[2021-10-27] MEDS: TAMSULOSIN HCL 0.4 MG CAPSULE PO (21:20)
[2021-10-28] VITALS (9 sets, daily range): BP systolic 128–144; BP diastolic 62–66; PULSE 57–80; RESP 14–20; TEMP 36.2–36.6; O2SAT 97–98
[2021-10-28 05:36] LABS: Hematocrit 36.2 % (42.0-52.0); Hemoglobin 12.4 g/dL (14.0-18.0); Mean Corpuscular HGB Conc 34.3 g/dl (32-36); Mean Corpuscular Hemoglobin 32.1 pg (26-34); Mean Corpuscular Volume 93.8 fl (80-100); Mean Platelet Volume 9.9 fl (7.4-10.4); Platelet Count Result 219 k/mm3 (150-375); Red Blood Count 3.86 M/mm3 (4.6-6.20); Red Cell Distribution Width 12.8 % (11.5-14.5); White Blood Count 6.5 K/mm3 (4.5-10.0)
[2021-10-28 05:51] LABS: Alanine Aminotransferase 38 U/L (4-50); Albumin Level 2.7 g/dL (3.5-5.1); Alkaline Phosphatase 223 U/L (38-126); Anion Gap 8 mmol/L (8-16); Aspartate Amino Transferase 57 U/L (17-59); Bilirubin,Total 1.3 mg/dL (0.2-1.3); Blood Urea Nitrogen 12 mg/dL (9-20); Calcium 8.2 mg/dL (8.4-10.2); Carbon Dioxide 21 mmol/L (22-30); Chloride 106 mmol/L (98-107); Estimated CRCL calculation 59 ml/min; Estimated Glomerular Filt Rate > 60; Glucose 124 mg/dL (65-110); Magnesium 1.7 mg/dL (1.6-2.3); Potassium 3.4 mmol/L (3.4-5.0); Sodium 135 mmol/L (137-145)
[2021-10-28] MEDS: allopurinoL 300 MG TABLET PO (09:01)
[2021-10-28] MEDS: carvediloL 3.125 MG TABLET PO (09:01)
[2021-10-28] MEDS: ASPIRIN 81 MG ENTERIC TABLET PO (09:01)
[2021-10-28] MEDS: ATORVASTATIN 40 MG TABLET 80 MG PO (09:01)
[2021-10-28] MEDS: TICAGRELOR 90 MG TABLET PO (09:02)
[2021-10-28] MEDS: SACUBITRIL/VALSARTAN 24-26 MG TABLET 1 TAB PO (09:02)
[2021-10-28] MEDS: PANTOPRAZOLE 40 MG TABLET PO (09:02)
--- NOTE | 2021-10-28 09:21 | WPDGIPROGNO ---
Progress Note: A&P Assessment and Plan (1) Weight loss: Code(s): R63.4 - Abnormal weight loss Status: Acute Assessment and Plan: As mentioned above, he feels that he has lost his appetite. He gets full after a few bites. upper GI showed a slight stricture. (2) Dysphagia: Code(s): R13.10 - Dysphagia, unspecified Status: Acute Assessment and Plan: he denies feeling food getting stuck but does feel as though there is constant build-up of phlegm that does not want to go down. I discussed his case with Dr. Rico. She feels it would be best to hold off on endoscopic procedures because his acute coronary event. We will schedule him for EGD in a couple of weeks (3) Ischemic cardiomyopathy: Code(s): I25.5 - Ischemic cardiomyopathy Status: Acute Assessment and Plan: because of this, he needs to stay on his anticoagulants. I told the patient that if in 1 we do endoscopy, if we need to take biopsies or do dilatation, that there is a somewhat higher risk of bleeding. Subjective Date/time seen: 10/28/21 09:21 he is resting comfortably. He has no complaints. I discussed with him the results of his upper GI and small-bowel series. It was unremarkable except that he has a been apparent mild stricture at the GE junction as was expected Review of Systems Review of Systems: All systems reviewed & are unremarkable except as noted in HPI and below Exam Const: General: alert Orientation/consciousness: patient oriented x3 Neck: Neck: normal visual inspection and nontender Resp: Auscultation: clear to auscultation bilaterally Cardio: Rhythm: regular rhythm GI: Inspection: normal to inspection GI Palp: No abdominal tenderness and Yes Soft to palpation Auscultation: normal bowel sounds Neuro: General: patient oriented x3 Objective Data Vital Signs Vital Signs: Vital Signs - 24 hr 10/27/21 10:00 10/27/21 10:03 10/27/21 12:00 Temperature Pulse Rate 77 78 69 Respiratory Rate Blood Pressure Pulse Oximetry 10/27/21 14:00 10/27/21 16:00 10/27/21 18:00 Temperature 36.5 C Pulse Rate 64 62 66 Respiratory Rate 20 Blood Pressure 129/88 Pulse Oximetry 97 10/27/21 20:00 10/27/21 21:21 10/27/21 22:00 Temperature 36.4 C L Pulse Rate 63 70 63 Respiratory Rate 18 Blood Pressure 140/65 Pulse Oximetry 97 10/28/21 00:00 10/28/21 02:00 10/28/21 04:00 Temperature 36.3 C L 36.2 C L Pulse Rate 67 61 66 Respiratory Rate 14 16 Blood Pressure 129/66 128/64 Pulse Oximetry 98 97 10/28/21 06:00 10/28/21 08:00 10/28/21 09:01 Temperature 36.6 C Pulse Rate 69 66 69 Respiratory Rate 20 Blood Pressure 144/62 H Pulse Oximetry 98 Intake/Output Intake/Output: Intake & Output 10/25/21 10/26/21 10/27/21 10/28/21 23:59 23:59 23:59 23:59 Intake Total 1790 150 100 Output Total 750 125 225 Balance 1040 25 -125 Meds/Results Medications: Active Medications Generic Name Dose Route Start Last Admin Trade Name Freq PRN Reason Stop Dose Admin Allopurinol 300 mg 10/26/21 09:55 10/28/21 09:01 Allopurinol 300 Mg Tablet PO 300 mg DAILY CESIA Administration Aspirin 81 mg 10/26/21 09:00 10/28/21 09:01 Aspirin 81 Mg Enteric Tablet PO 81 mg QAM CESIA Administration Atorvastatin Calcium 80 mg 10/26/21 09:00 10/28/21 09:01 Atorvastatin 40 Mg Tablet PO 80 mg DAILY CESIA Administration Carvedilol 3.125 mg 10/26/21 21:00 10/28/21 09:01 Carvedilol 3.125 Mg Tablet PO 3.125 mg Q12HR CESIA Administration Melatonin 5 mg 10/26/21 23:00 10/27/21 21:20 Melatonin 5 Mg Tablet PO 5 mg HS CESIA Administration Nitroglycerin 0.4 mg 10/26/21 09:50 Nitroglycerin Sl 0.4 Mg Tablet SUBLINGUAL Q5M PRN Chest Pain Pantoprazole Sodium 40 mg 10/26/21 09:00 10/28/21 09:02 Pantoprazole 40 Mg Tablet PO 40 mg QAM CESIA Administration Sacubitril/Valsartan 1 tab 10/27/21
--- NOTE | 2021-10-28 10:41 | PM.IMPN ---
Progress Note: A&P Assessment and Plan (1) ST elevation (STEMI) myocardial infarction: Qualifiers: Involved coronary artery: unspecified coronary artery Qualified Code(s): I21.3 - ST elevation (STEMI) myocardial infarction of unspecified site Code(s): I21.3 - ST elevation (STEMI) myocardial infarction of unspecified site Status: Acute Assessment and Plan: Management per primary service with Coreg, Arb, Xarelto, statin and Ticagrelor. (2) Ischemic cardiomyopathy: Code(s): I25.5 - Ischemic cardiomyopathy Status: Acute Assessment and Plan: Patient is on Coreg and angiotensin receptor fadi. Patient appears euvolemic and compensated. Patient is a candidate for LifeVest which Cardiology has discussing patient. (3) Weight loss: Code(s): R63.4 - Abnormal weight loss Status: Acute Assessment and Plan: Weight loss is likely multifactorial due to recent COVID infection and or recurrence of esophageal stricture given patient's report of dysphagia. Protonix has been started and GI has been consulted. (4) Hematuria: Qualifiers: Hematuria type: gross Qualified Code(s): R31.0 - Gross hematuria Code(s): R31.9 - Hematuria, unspecified Status: Acute Assessment and Plan: Reportedly improving. Hemoglobin is stable. Will continue home Flomax and monitor urine output closely. No evidence of obstructive uropathy at this point. (5) History of COVID-19: Code(s): Z86.16 - Personal history of COVID-19 Status: Acute Assessment and Plan: Symptoms have been improving. The patient does not have any hypoxia. Continue with supportive treatment only. (6) Bradycardia: Code(s): R00.1 - Bradycardia, unspecified Status: Acute Assessment and Plan: Improved after metoprolol was switched to Coreg. The patient is being monitored on telemetry. Additional Plan 10/27/21 CAD w h/o CABG on Eliquis s/p PCI to SVG w planned staged PCI x RCA stenosis which is going to be addressed in the next few weeks. systolic CHF Ejection fraction is about 30% GI Urology and Cardio consulted GI series today pending urology recs 10/28/21 urology to see patient back in our office in 1-2 weeks GI to do EGD in a couple of weeks after patient successfully recovers from STEMI seen and cleared for discharge by Cardiology pending Zoll vest of note patient does have negative COVID follow-up test. He was previously positive in the outpatient setting continue care per cardiology Subjective Date/time seen: 10/28/21 10:41 pt doing well pending delivery of Zoll Vest Exam Narrative: PHYSICAL EXAMINATION: GENERAL: Alert, oriented, no acute distress MENTAL STATUS: affect appropriate to mood EYES: Extraocular movements intact, no pallor NOSE: Normal and patent, no discharge NECK: Supple, no JVD CHEST: Good respiratory effort, no use of accessory muscles HEART: Normal rate, regular rhythm, distant heart sounds ABDOMEN: Soft, nontender NEUROLOGICAL: Alert, oriented, normal speech, no gross motor deficits MUSCULOSKELETAL: No major deformity, no amputation EXTREMITIES: No pedal edema, no clubbing, no cyanosis PSYCHIATRIC: Normal mood, appropriate affect Objective Data Vital Signs Vital Signs: Vital Signs - 24 hr 10/27/21 12:00 10/27/21 14:00 10/27/21 16:00 Temperature 97.7 F Pulse Rate 69 64 62 Respiratory Rate 20 Blood Pressure 129/88 Pulse Oximetry 97 10/27/21 18:00 10/27/21 20:00 10/27/21 21:21 Temperature 97.5 F L Pulse Rate 66 63 70 Respiratory Rate 18 Blood Pressure 140/65 Pulse Oximetry 97 10/27/21 22:00 10/28/21 00:00 10/28/21 02:00 Temperature 97.4 F L Pulse Rate 63 67 61 Respiratory Rate 14 Blood Pressure 129/66 Pulse Oximetry 98 10/28/21 04:00 10/28/21 06:00 10/28/21 08:00 Temperature 97.2 F L 97.8 F Pulse Ra
--- NOTE | 2021-10-28 12:32 | PM.DS ---
DS: Admitting Diagnosis Discharge Date 10/28/2021 Admitting Diagnosis STEMI DS: Discharge Diagnosis Discharge Diagnosis (1) ST elevation (STEMI) myocardial infarction: Qualifiers: Involved coronary artery: unspecified coronary artery Qualified Code(s): I21.3 - ST elevation (STEMI) myocardial infarction of unspecified site Code(s): I21.3 - ST elevation (STEMI) myocardial infarction of unspecified site Status: Acute Assessment and Plan: Patient has a history of CAD CAD, CABG in 2018 (MARTÍNEZ to the Left anterior descending, SVG to the OM, SVG to 1st diagonal, pulmonary vein isolation and left atrial appendage excision by Dr. Kohli at [facility]). Admitted with an acute lateral PR 10/25/2021, found to have an occluded SVG to the diagonal and a tight proximal stenosis of a large diagonal. The diagonal stented w/ a Xience Kaity 2.5 X 23 mm drug-eluting stent. Has a residual 70% RCA lesion which we may address at a later date. Peak troponin was 5.6. He was started on carvedilol and is Xarelto was discontinued in favor of aspirin and Brilinta. Follow-up EKG showed resolution of ST elevation, and nonspecific ST changes. He did well afterwards with no ventricular arrhythmias, chest pain or shortness of breath. He is up and ambulating today in eager for discharge. (2) Ischemic cardiomyopathy: Code(s): I25.5 - Ischemic cardiomyopathy Status: Acute Assessment and Plan: Echocardiogram showed a drop in his ejection fraction now 30-35%. Although his BNP was 5300, He had no CHF during his hospital stay. His valsartan was changed to Entresto. He was started on carvedilol. Rare PVCs were noted. Because he is at risk of sudden cardiac due to his recent PR and low ejection fraction, we are planning on a Life Vest. If it cannot be fitted today, he desires to go home and have it fitted in the office early this week. Likely we will repeat his echo in several weeks to see if there has been improvement of heart function which I anticipate. (3) Hematuria: Qualifiers: Hematuria type: gross Qualified Code(s): R31.0 - Gross hematuria Code(s): R31.9 - Hematuria, unspecified Status: Acute Assessment and Plan: The patient had gross hematuria the morning following his coronary stenting. Dr. Way was consulted. The hematuria resolved with no specific therapy other than IV fluids. Dr. Way recommended continuing the tamsulosin and office follow-up. (4) Hyperlipidemia: Code(s): E78.5 - Hyperlipidemia, unspecified Status: Acute Assessment and Plan: LDL cholesterol was 34, total cholesterol 67, taking atorvastatin 40 mg daily. He was increased to 80 mg daily. (5) HTN (hypertension): Code(s): I10 - Essential (primary) hypertension Status: Acute Assessment and Plan: Blood pressure has been controlled. (6) Bradycardia: Code(s): R00.1 - Bradycardia, unspecified Status: Acute Assessment and Plan: The patient has a history of bradycardia, but tolerated the delete carvedilol with no significant bradycardia. Occ. APCs were noted. (7) Atrial fibrillation: Code(s): I48.91 - Unspecified atrial fibrillation Status: Acute Assessment and Plan: The patient has a history of paroxysmal atrial fibrillation. He had a Maze procedure and ligation of the left atrial appendage with his bypass surgery and we have not seen any further atrial fibrillation. He requires dual anti-platelet therapy and has had problems with epistaxis in the past. I that his risk of AFib was low, and his risk of cardioembolic events was quite low. After discussion with the patient and his son, we discontinued the Xarelto in favor of dual anti-platelet therapy and high reduction in bleeding complications. (8) History of COVID-19: Code(s): Z86.16 - Personal history of COVID-19 Status: Acute
== END 2021-10-28 15:04 | disposition home or self-care (01) | DRG 247 ==
LOC: ANHED 20:21 → ANHICU 21:44 → ANHIMU 10-26 18:42
PROVIDERS: Emergency Medicine; Hospitalist; Internal Medicine; Internal Medicine Cardiovascular Disease; Urology; Admitting Provider Internal Medicine Interventional Cardiology; Emergency Provider Emergency Medicine; PCP Internal Medicine; Visit Provider Internal Medicine Interventional Cardiology
PROC: 027034Z Dilation of Coronary Artery, One Artery with Drug-eluting Intraluminal Device, Percutaneous Approach (ICD-10-PCS; 2021-10-25 20:05)
PROC: 027034Z Dilation of Coronary Artery, One Artery with Drug-eluting Intraluminal Device, Percutaneous Approach (ICD-10-PCS; 2021-10-25 20:05)
PROC: 4A023N7 Measurement of Cardiac Sampling and Pressure, Left Heart, Percutaneous Approach (ICD-10-PCS; CPT 93459; 2021-10-25 20:05)
DX: I21.29 ST elevation (STEMI) myocardial infarction involving other sites (principal); I25.810 Atherosclerosis of coronary artery bypass graft(s) without angina pectoris; I50.20 Unspecified systolic (congestive) heart failure; I11.0 Hypertensive heart disease with heart failure; I25.5 Ischemic cardiomyopathy; I48.91 Unspecified atrial fibrillation; Z20.822 Contact with and (suspected) exposure to COVID-19; Z86.16 Personal history of COVID-19; R00.1 Bradycardia, unspecified; R31.0 Gross hematuria; R13.10 Dysphagia, unspecified; R63.4 Abnormal weight loss; N40.1 Benign prostatic hyperplasia with lower urinary tract symptoms; R35.1 Nocturia; R39.11 Hesitancy of micturition; E78.5 Hyperlipidemia, unspecified; M10.9 Gout, unspecified; Z66 Do not resuscitate; Z79.01 Long term (current) use of anticoagulants; Z79.899 Other long term (current) drug therapy; Z95.5 Presence of coronary angioplasty implant and graft
CPT/HCPCS: 36415; 71045; 71046; 74246; 74248; 80048; 80053; 81001; 82465; 83690; 83721; 83735; 83880; 84484; 85025; 85027; 85610; 85730; 87426; 93005; 93306; 93458; 93459; 96360; 96374; 96375; 99284; 99291; A9270; C1725; C1760; C1769; C1874; C1887; C1894; C9113; C9606; C9803; G0269; J1644; J2250; J2270; J2405; J3010; J7030; J7040; Q9957

== ENCOUNTER 2022-02-15 08:39 | Outpatient (CLI) | payer OTHER, SELFPAY ==
[2022-02-15 09:51] LABS: Anion Gap 4 mmol/L (8-16); Blood Urea Nitrogen 16 mg/dL (9-20); Calcium 8.6 mg/dL (8.4-10.2); Carbon Dioxide 26 mmol/L (22-30); Chloride 105 mmol/L (98-107); Estimated Glomerular Filt Rate > 60; Glucose 127 mg/dL (65-110); Potassium 4.4 mmol/L (3.4-5.0); Sodium 135 mmol/L (137-145)
== END 2022-02-15 08:40 | disposition home or self-care (01) ==
PROVIDERS: PCP Internal Medicine; Visit Provider Internal Medicine Cardiovascular Disease
DX: R06.00 Dyspnea, unspecified (principal)
CPT/HCPCS: 36415; 80048

== ENCOUNTER 2022-03-29 07:15 | Outpatient (RCR) | payer OTHER, SELFPAY ==
[2021-12-26 08:58] VITALS: PULSE 53
== END 2022-03-29 07:45 | disposition home or self-care (01) ==
LOC: ANHCPREHAB 07:15
PROVIDERS: PCP Internal Medicine; Visit Provider Internal Medicine Cardiovascular Disease
DX: Z95.5 Presence of coronary angioplasty implant and graft (principal)
CPT/HCPCS: 93798

== ENCOUNTER 2023-11-21 07:54 | Observation (INO) | payer OTHER, SELFPAY ==
[2023-11-21] VITALS (16 sets, daily range): BP systolic 117–158; BP diastolic 76–94; PULSE 80–98; RESP 12–20; TEMP 36.4–36.9; O2SAT 91–99; BMI 25.9
--- NOTE | ~2023-11-21 | CT_ITS ---
EXAMINATION: CTA chest DATE: 11/21/2023 09:32 INDICATION: Midsternal chest pain radiating to the back TECHNIQUE: Computed tomographic angiography (CTA) of the chest was performed with 100 mL Omnipque-350 intravenous contrast. Maximum intensity projection 3D-reconstructions of the aorta and other arterie s were constructed by the technologist on a separate workstation. The dose-length product (DLP) was 4 39.17 mGy-cm. Automated exposure control and iterative reconstruction technique were employed. COMPARISON: 02/09/2018 FINDINGS: The ascending aorta measures 4.1 cm at the level of the main pulmonary artery. There is no aortic dissection. There are changes of coronary artery bypass grafting. No pathologically enlarged t horacic lymph nodes are identified. The heart size is normal. There is mild dependent atelectasis. No pleural effusion or pneumothorax. There is moderate thoracic spondylosis. IMPRESSION: 1. Stable fusiform aneurysm of the ascending aorta without dissection. No acute cardiopulmonary abnor mality. Reviewed, dictated and finalized at location L. N RESOURCES ADVISOR IMPRESSION: 1. Stable fusiform aneurysm of the ascending aorta without dissection. No acute cardiopulmonary abnormality.
--- NOTE | ~2023-11-21 | XR_ITS ---
EXAMINATION: XR chest 1V portable INDICATION: Midsternal chest pain TECHNIQUE: Portable AP chest at 0835 hours COMPARISON: 10/27/2021 FINDINGS: The lungs are free of acute opacities. No pleural effusion or pneumothorax. Median sternoto my wires and mediastinal surgical clips are seen, likely from prior coronary artery bypass grafting. The heart size is normal. IMPRESSION: 1. No acute cardiopulmonary abnormality. Reviewed, dictated and finalized at location L. ABUSE WORKER
--- NOTE | 2023-11-21 08:01 | ECG_ITS ---
Measurements Intervals [place] Rate: 96 P: [place]: 0 QRS: -40 QRSD: 84 T: 26 QT: 356 QTc: 451 Interpretive Statements ATRIAL FLUTTER/TACHYCARDIA POSSIBLE RIGHT VENTRICULAR CONDUCTION DELAY [RSR (QR) IN V1/V2] INFERIOR MYOCARDIAL INFARCTION , PROBABLY OLD [40+ ms Q WAVE AND/OR ST/T ABNORMALITY IN II/aVF] COMPARED TO ECG 10/26/2021 09:36:18 ATRIAL FLUTTER NOW PRESENT Electronically Signed On 11-21-2023 11:26:49 FURNITURE REPAIR TECHNICIAN by Chris Soto M.D.
[2023-11-21 08:35] LABS: INR 2.2; Partial Thromboplastin Time 38.2 SECONDS (22.3-36.8); Prothrombin Time 25.9 Seconds (11.1-14.7)
[2023-11-21 08:37] LABS: Alanine Aminotransferase 15 U/L (6-50); Albumin Level 3.6 g/dL (3.5-5.1); Alkaline Phosphatase 110 U/L (38-126); Anion Gap 6 mmol/L (8-16); Aspartate Amino Transferase 28 U/L (17-59); Bilirubin,Total 1.7 mg/dL (0.2-1.3); Blood Urea Nitrogen 17 mg/dL (9-20); Carbon Dioxide 24 mmol/L (22-30); Chloride 105 mmol/L (98-107); Estimated CRCL calculation 51 ml/min; Estimated Glomerular Filt Rate > 60; Glucose 121 mg/dL (65-110); Lipase 84 U/L (23-300); Sodium 135 mmol/L (137-145)
[2023-11-21 08:43] LABS: Basophils Percent Auto 0.4 % (0.2-1.2); Eosinophils Absolute Auto 0.1 K/mm3 (0-0.3); Eosinophils Percent Auto 0.9 % (0-4.4); Hematocrit 39.3 % (42.0-52.0); Immature Granulocyte Absolute 0.02 K/mm3 (0.00-0.031); Immature Granulocyte Percent A 0.3 % (0-0.5); Lymphocytes Absolute Auto 1.75 K/mm3 (0.9-3.2); Lymphocytes Percent Auto 25.4 % (18.3-44.2); Mean Corpuscular HGB Conc 33.1 g/dl (32-36); Mean Corpuscular Hemoglobin 31.7 pg (26-34); Mean Corpuscular Volume 95.9 fl (80-100); Mean Platelet Volume 9.9 fl (7.4-10.4); Monocytes Absolute Auto 0.5 K/mm3 (0.1-0.6); Monocytes Percent Auto 7.1 % (2.6-8.5); Neutrophils Absolute Auto 4.6 K/mm3 (1.3-6.7); Neutrophils Percent Auto 65.9 % (45.5-73.1); Platelet Count Result 219 k/mm3 (150-375); Red Cell Distribution Width 13.7 % (11.5-14.5); White Blood Count 6.9 K/mm3 (4.5-10.0)
[2023-11-21 08:48] LABS: Troponin I < 0.012 ng/mL (0.000-0.034)
[2023-11-21 10:09] LABS: Influenza A QL RT-PCR Negative (Negative); Influenza B QL RT-PCR Negative (Negative); SARS-CoV-2 RNA PCR Negative (Negative)
--- NOTE | 2023-11-21 10:49 | ECG_ITS ---
Measurements Intervals [place] Rate: 80 P: [place]: 0 QRS: -48 QRSD: 93 T: 11 QT: 368 QTc: 425 Interpretive Statements ATRIAL FLUTTER/TACHYCARDIA POSSIBLE RIGHT VENTRICULAR CONDUCTION DELAY [RSR (QR) IN V1/V2] INFERIOR MYOCARDIAL INFARCTION , PROBABLY OLD [40+ ms Q WAVE AND/OR ST/T ABNORMALITY IN II/aVF] NO SIGNIFICANT CHANGES Electronically Signed On 11-21-2023 11:28:55 CLOTHING MAN by Chris Soto M.D.
--- NOTE | 2023-11-21 11:10 | ED.CHESTPAIN ---
HPI - Chest Pain General Chief Complaint: Chest Pain Stated Complaint: cp Time Seen by Provider: 11/21/23 09:12 History of Present Illness HPI narrative: Patient is an 87-year-old male who presents to the emergency department this morning complaining of chest. Patient states the pain started at 7:00 a.m. an hour after he woke and describes it as a mild pressure in the middle of his chest. Patient rated the pain 4/10 on the pain scale. Patient took a sublingual nitroglycerin and 3 aspirins with resolution of his pain. Patient states that since then he has not had any chest but wanted to be further evaluated since he does have a history of coronary artery disease and triple bypass. Patient denies any additional symptoms including shortness of breath, nausea, vomiting, abdominal pain, dysuria, hematuria, constipation, diarrhea, melena, hematochezia, fevers or chills. Patient also denies any headaches, dizziness, lightheadedness, blurry visions, focal weakness, numbness and or tingling. There are no other modifying, alleviating, or precipitating factors at this time. Related Data Home Medications Medication Instructions Recorded Confirmed allopurinol 300 mg tablet mg 11/21/23 atorvastatin 11/21/23 pantoprazole 40 mg tablet,delayed 40 mg PO QAM 11/21/23 11/21/23 release rivaroxaban 20 mg tablet (Xarelto) mg 11/21/23 sacubitril 24 mg-valsartan 26 mg tablet 11/21/23 11/21/23 tablet (Entresto) tamsulosin 0.4 mg capsule mg PO 11/21/23 Allergies Allergy/AdvReac Type Severity Reaction Status Date / Time No Known Allergies Allergy Verified 11/21/23 08:47 Review of Systems Review of Systems: All systems are reviewed and are negative unless stated otherwise in the HPI. [facility] Past Medical History Medical History Atrial fibrillation Paroxysmal AFib status post ablation February 2008 BPH (benign prostatic hyperplasia) CAD (coronary artery disease) Gout History of COVID-19 Hyperlipidemia Ischemic cardiomyopathy Pneumonia due to COVID-19 virus (10/11/21) The patient's most recent COVID vaccine January 2021 Surgical History Surgical History S/P CABG (coronary artery bypass graft) (~2007) MARTÍNEZ to LAD, saphenous vein graft to obtuse marginal, saphenous vein graft to D1 Status post balloon dilatation of esophageal stricture Family History Family History Mother Acute myocardial infarction Cerebrovascular accident Hypertension Sibling Breast cancer Diabetes mellitus Social History Social History Social History: He has been to his current for 11 years. He has 2 sons and 3 stepsons. 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 He smoked briefly as a young adult. He denies any significant alcohol history or illicit substance use. Primary care physician: Dr. Mauricio De La Fuente Code status: Full code Healthcare power of sports attorney: Cynthia () Smoking packs per day: 1 Smoking cigarettes per day: 20.0 Years smoked: 2 Smoking pack-years: 2.00 Smoking status: Former smoker Tobacco type: cigarettes Alcohol intake: current Drinks per week: 1 Substance use: never Spiritual care concerns: No Exam Narrative: General: Alert, awake, afebrile, in no acute distress. HEENT: PERRL, no rhinorrhea, no post nasal drip, oropharynx clear. Neck: Trachea midline, no JVD, no lymphadenopathy. Cardiovascular: Regular rate and rhythm, no murmurs, rubs or gallops, no peripheral edema. Respiratory: Clear to auscultation bilaterally, no tachypnea, no wheezing, no rhonchi, no rubs, no respiratory distress. Abdomen: Soft, nontender, nondistended, no rebound, no guarding, no peritoneal signs. Mu
[2023-11-21 11:34] LABS: Troponin I < 0.012 ng/mL (0.000-0.034)
--- NOTE | 2023-11-21 14:33 | PM.IMHP ---
H&P: HPI History of Present Illness Date/Time: 11/21/23 14:50 Chief Complaint: Chest pain. Narrative: This is a very pleasant 87-year-old male with coronary artery disease with history of stents and 3 vessel bypass in 2018, ischemic cardiomyopathy, hypertension, paroxysmal atrial fibrillation status post pulmonary vein isolation and left atrial appendage excision on chronic anticoagulation, hyperlipidemia, ascending aortic aneurysm, prediabetes, benign prostatic hyperplasia, and gout who presented to the emergency department for evaluation of chest pain. The patient provides the following history. Approximately 1 hour after waking this morning he noticed mild pressure in the middle of his chest so he took a sublingual nitroglycerin and 3 aspirin with resolution of his discomfort. The pressure did not radiate and was not too severe, rated 4/10. He did not notice any aggravating factors. He denies associated shortness of breath, nausea, sweats, lightheadedness, and dizziness. On Saturday he had a similar episode of chest pain while shopping at [employer]. He took a nitroglycerin when he was going to check out and that seemed to resolve his symptoms however he reports feeling very lightheaded and dizzy thereafter though that passed and he was able to go home. Patient was educated about the appropriate use of nitroglycerin and the fact that it may cause is blood pressures to drop so he was encouraged to take it only while seated. In the ED: He was afebrile on arrival with stable vital signs though blood pressures have been running a bit high, in the 140s to 150s systolic. Labs were significant for a mild and stable normocytic anemia, INR 2.2, sodium 135, random glucose 121, total bilirubin 1.7, troponin < 0.012. Chest CTA showed a stable fusiform aneurysm of the ascending aorta measuring 4.1 cm without dissection and no acute cardiopulmonary abnormality. EKG showed atrial flutter/tachycardia with probable old inferior VA. He is being admitted in this setting for close monitoring and consultation with his drilling rig operator, Dr. Rico, given his cardiac history. Review of Systems Review of Systems: Twelve systems were reviewed and are negative except for as per HPI. [facility]LY [facility] Past Medical History Medical History (Updated 11/21/23 @ 22:17 by Kenyetta Guaman PA-C) Ascending aortic aneurysm Stable 4.1 cm fusiform aneurysm of ascending aorta at the level of the main pulmonary artery noted on CT scan taken 11/21/2023; 1st seen on CT in January 2018. Benign prostatic hyperplasia Chronic anticoagulation Coronary artery disease Gout Hyperlipidemia Hypertension Ischemic cardiomyopathy Paroxysmal atrial fibrillation Pneumonia due to COVID-19 virus (10/11/21) Prediabetes Surgical History Surgical History (Updated 11/21/23 @ 22:17 by Kenyetta Guaman PA-C) History of bilateral cataract extraction History of coronary artery bypass graft (03/2018) MARTÍNEZ to LAD, saphenous vein graft to obtuse marginal, saphenous vein graft to 1st diagonal per Dr. Kohli at [facility]. History of coronary artery stent placement History of stents to the LAD, RCA, and diagonal. History of left atrial appendage closure (2017) Left atrial appendage excision per Dr. Kohli at [facility]. Status post balloon dilatation of esophageal stricture Family History Family History Mother Acute myocardial infarction Cerebrovascular accident Hypertension Sibling Breast cancer Diabetes mellitus Social History Social History Social History: Surrogate medical decision maker: Cynthia Mg, . Code status: Full code. Smoking packs per day: 1 Smoking cigarettes per day: 20.0 Years smoked: 2 Smoking pack-years: 2.00 Smoking status: Former smoker Tobacco type: cigarettes Alcohol intake: current Drinks per week: 1 Substance use: ne
--- NOTE | 2023-11-21 14:37 | ADMGEN ---
This patient, Tevin Mg, was admitted to IMU Room 200-01. Patient/family oriented to hospital policies and general routines including ID bracelet, bed and alarms, visiting hours, pain management, procedures, bathroom and other care routines, personal items, smoking policy, room service/diet, and visiting hours. Information on how to activate the Rapid Response Team has been discussed. Patient/Family are encouraged to report perceived risks to care and to ask questions if they do not understand what they are told or what they should do.
[2023-11-21 16:03] LABS: Troponin I < 0.012 ng/mL (0.000-0.034)
[2023-11-21 17:21] LABS: Hemoglobin A1C 6.6 % (<5.7)
[2023-11-21] MEDS: SACUBITRIL/VALSARTAN 24-26 MG TABLET 1 TAB PO (17:26)
[2023-11-21] MEDS: SACUBITRIL/VALSARTAN 12-13 MG TABLET 1 TAB PO (17:26)
[2023-11-21] MEDS: TAMSULOSIN HCL 0.4 MG CAPSULE PO (21:25)
[2023-11-21] MEDS: RIVAROXABAN 20 MG TABLET PO (21:25)
[2023-11-21 22:02] LABS: Cholesterol 123 mg/dL (0-200)
[2023-11-22] VITALS (7 sets, daily range): BP systolic 128–131; BP diastolic 73–78; PULSE 80–111; RESP 16–18; TEMP 36.2–36.7; O2SAT 91–98
[2023-11-22 05:32] LABS: Hematocrit 38.3 % (42.0-52.0); Hemoglobin 12.8 g/dL (14.0-18.0); Mean Corpuscular HGB Conc 33.4 g/dl (32-36); Mean Corpuscular Volume 95.8 fl (80-100); Mean Platelet Volume 10.2 fl (7.4-10.4); Platelet Count Result 212 k/mm3 (150-375); Red Cell Distribution Width 13.7 % (11.5-14.5); White Blood Count 5.7 K/mm3 (4.5-10.0)
[2023-11-22 05:45] LABS: Alanine Aminotransferase 13 U/L (6-50); Albumin Level 3.2 g/dL (3.5-5.1); Alkaline Phosphatase 100 U/L (38-126); Anion Gap 5 mmol/L (8-16); Aspartate Amino Transferase 24 U/L (17-59); Bilirubin,Total 1.6 mg/dL (0.2-1.3); Blood Urea Nitrogen 17 mg/dL (9-20); Calcium 8.7 mg/dL (8.4-10.2); Carbon Dioxide 25 mmol/L (22-30); Chloride 103 mmol/L (98-107); Estimated CRCL calculation 46 ml/min; Estimated Glomerular Filt Rate > 60; Glucose 101 mg/dL (65-110); Magnesium 1.9 mg/dL (1.6-2.3); Potassium 3.9 mmol/L (3.4-5.0); Sodium 133 mmol/L (137-145)
--- NOTE | 2023-11-22 09:01 | PM.CNCAR ---
Assessment and Plan Assessment and plan (1) Ischemic cardiomyopathy: Code(s): I25.5 - Ischemic cardiomyopathy Status: Acute (2) Coronary artery disease: Code(s): I25.10 - Atherosclerotic heart disease of [place] coronary artery without angina pectoris Status: Acute (3) Paroxysmal atrial fibrillation: Code(s): I48.0 - Paroxysmal atrial fibrillation Status: Acute Plan this is an 87-year-old man with chronic coronary artery disease with both previous surgical and percutaneous revascularization. He has been stable since October of 2021 at which time he presented with ST-elevation and had PCI of occluded diagonal branch of his LAD. His current symptoms of course raise concern but it is very reassuring that his troponin levels are negative x3 sets. He is asymptomatic this morning without any recurrences. I would believe at this point I he is stable for discharge. He does have follow-up in the office scheduled in the next couple of weeks for routine follow-up we will keep that appointment on the schedule. At this time he can be released from my perspective. Christoph Freire MD [facility] History of Present Illness History of Present Illness Consult date/time: 11/22/23 09:01 Reason For Visit: cp Narrative: This is an 87-year-old man I am seeing today at the request of the hospitalist because of chest pain. The patient is known to my partner, Dr. Rico and has a chronic history of coronary artery disease and a history of paroxysmal atrial fibrillation. He is feeling well this morning and denies any complaints of any kind. Yesterday while he was at home he said he had an episode of some central chest pressure that occurred while he was at rest it was not associated with any shortness of breath diaphoresis nausea or vomiting there was no radiation of this symptoms to any other location in his body. Altogether the symptom lasted for a couple of hours and then seems to have subsided on its own. Because of his history he was concerned and came to the emergency room for evaluation. His ER evaluation was essentially unrevealing for any evidence of acute coronary syndrome. He preferred to be admitted to the hospital overnight for observation. He has not had a recurrence of any symptoms like this since being admitted yesterday morning. His troponin levels were sampled yesterday x3 sets and remained unremarkable. His EKG shows atypical atrial flutter with normal ventricular response leftward axis and incomplete right bundle branch block. There were no ST or T-wave abnormalities consistent with ischemia or injury. Patient has a history of coronary artery disease with a remote history of coronary bypass grafting. He also has a history of paroxysmal atrial fibrillation and a history of more recent percutaneous revascularization of the diagonal branch of his LAD. That procedure occurred in October of 2021. The patient does not take any beta-fadi or anything that would control his heart rate. He does take Entresto for his LV systolic dysfunction and Xarelto for systemic anticoagulation. Review of Systems Constitutional: Constitutional: Reports no additional constitutional complaints Eyes: Eyes: Reports no additional eye complaints ENT: Reports system reviewed and no additional complaints, except as documented Cardiovascular: Cardiovascular: Reports as per HPI and Reports chest pain Respiratory: Respiratory: Reports no additional respiratory complaints Gastrointestinal: Gastrointestinal: Reports no additional gastrointestinal complaints Musculoskeletal: Musculoskeletal: Reports no additional musculoskeletal complaints Integumentary/Breasts: Skin/Breast: Reports system reviewed and no additional complaints, except as docu Neurologic: Reports system reviewed and no additional complaints, except as documented Endocrine: Endocrine: Reports no additional endocrine complaints Hematologic/Lymphatic: Hem
[2023-11-22] MEDS: SACUBITRIL/VALSARTAN 24-26 MG TABLET 1 TAB PO (09:30)
[2023-11-22] MEDS: ATORVASTATIN 40 MG TABLET 80 MG PO (09:30)
[2023-11-22] MEDS: SACUBITRIL/VALSARTAN 12-13 MG TABLET 1 TAB PO (09:30)
[2023-11-22] MEDS: allopurinoL 300 MG TABLET PO (09:30)
[2023-11-22] MEDS: PANTOPRAZOLE 40 MG TABLET PO (09:30)
--- NOTE | 2023-11-22 09:36 | PM.DS ---
DS: Admitting Diagnosis Discharge Date November 22, 2023 Admitting Diagnosis Chest pain DS: Discharge Diagnosis Discharge Diagnosis (1) Paroxysmal atrial fibrillation: Code(s): I48.0 - Paroxysmal atrial fibrillation Status: Acute (2) Chest pain: Code(s): R07.9 - Chest pain, unspecified Status: Acute (3) Atrial fibrillation: Code(s): I48.91 - Unspecified atrial fibrillation Status: Acute (4) Ischemic cardiomyopathy: Code(s): I25.5 - Ischemic cardiomyopathy Status: Acute DS: Summary Hospital Course Hospital Course: A pleasant 87-year-old white male with a past medical history coronary artery disease status post stents and 3 vessel bypass in 2018, ischemic cardiomyopathy, hypertension, paroxysmal atrial fibrillation. He presented with chest pain with the following narrative on HPI Approximately 1 hour after waking this morning he noticed mild pressure in the middle of his chest so he took a sublingual nitroglycerin and 3 aspirin with resolution of his discomfort. The pressure did not radiate and was not too severe, rated 4/10. He did not notice any aggravating factors. He denies associated shortness of breath, nausea, sweats, lightheadedness, and dizziness. On Saturday he had a similar episode of chest pain while shopping at [employer]. He took a nitroglycerin when he was going to check out and that seemed to resolve his symptoms however he reports feeling very lightheaded and dizzy thereafter though that passed and he was able to go home. Patient was educated about the appropriate use of nitroglycerin and the fact that it may cause is blood pressures to drop so he was encouraged to take it only while seated. ACS was ruled out. Cardiology was consulted and they cleared the patient to return home and follow-up with their office with his usual kennel operator Dr. Rico which she has an appointment within the next 2 weeks. He has been taking his medications consistently which include atorvastatin and rivaroxaban. He has not been taking aspirin as he has a bleeding risk with prior epistaxis and hematuria. He was also told to stop this by his orthopedic doctor. The patient wants to discuss this further with his kennel operator at the outpatient visit. Patient was full code during his admission. Time Spent with Patient Time attestation: Total time spent providing and/or coordinating discharge services: Exam Const: General: cooperative and no acute distress Resp: Effort & Inspection: normal respiratory effort Auscultation: clear to auscultation bilaterally Cardio: Rate: regular rate Rhythm: regular rhythm Heart sounds: S1 normal heart sound present and S2 normal heart sound present GI: GI Palp: No abdominal tenderness Auscultation: normal bowel sounds DS: Data Data Completed and Pending Labs on day of discharge: Labs from last 24 hours 11/22/23 11/21/23 11/21/23 04:25 21:44 15:11 WBC 5.7 RBC 4.00 L Hgb 12.8 L Hct 38.3 L MCV 95.8 MCH 32.0 MCHC 33.4 RDW 13.7 Plt Count 212 MPV 10.2 Sodium 133 L Potassium 3.9 Chloride 103 Carbon Dioxide 25 Anion Gap 5 L BUN 17 Creatinine 1.00 Estim Creat Clear Calc 46 Estimated GFR > 60 Glucose 101 Hemoglobin A1c 6.6 H Calcium 8.7 Magnesium 1.9 Total Bilirubin 1.6 H AST 24 ALT 13 Alkaline Phosphatase 100 Troponin I < 0.012 Total Protein 6.0 L Albumin 3.2 L Cholesterol 123 Influenza A (RT-PCR) Influenza B (RT-PCR) SARS-CoV-2 RNA (RT-PCR) 11/21/23 11/21/23 11:00 09:23 WBC RBC Hgb Hct MCV MCH MCHC RDW Plt Count MPV Sodium Potassium Chloride Carbon Dioxide Anion Gap BUN Creatinine Estim Creat Clear Calc Estimated GFR Glucose Hemoglobin A1c Calcium Magnesium Total Bilirubin AST ALT Alkaline Phosphatase Troponin I < 0.012 Total Protein Albumin
== END 2023-11-22 11:25 | disposition home or self-care (01) ==
LOC: ANHED 13:31 → ANHIMU 14:06
PROVIDERS: Physician Assistant; Admitting Provider General Practice; Emergency Provider Emergency Medicine; PCP Internal Medicine; Visit Provider General Practice
DX: R07.9 Chest pain, unspecified (principal); I25.5 Ischemic cardiomyopathy; I25.10 Atherosclerotic heart disease of native coronary artery without angina pectoris; Z95.1 Presence of aortocoronary bypass graft; Z95.5 Presence of coronary angioplasty implant and graft; I10 Essential (primary) hypertension; I48.0 Paroxysmal atrial fibrillation; I48.92 Unspecified atrial flutter; I71.21 Aneurysm of the ascending aorta, without rupture; D64.9 Anemia, unspecified; R73.03 Prediabetes; Z20.822 Contact with and (suspected) exposure to COVID-19; N40.0 Benign prostatic hyperplasia without lower urinary tract symptoms; M10.9 Gout, unspecified; E78.5 Hyperlipidemia, unspecified; Z86.16 Personal history of COVID-19; Z87.01 Personal history of pneumonia (recurrent); Z79.01 Long term (current) use of anticoagulants; Z87.891 Personal history of nicotine dependence
CPT/HCPCS: 36415; 71045; 71275; 80053; 82465; 83036; 83690; 83735; 84484; 85025; 85027; 85610; 85730; 87636; 93005; 99285; A9270; G0378; Q9967

== ENCOUNTER 2023-12-18 09:32 | Outpatient (CLI) | payer OTHER, SELFPAY ==
--- NOTE | ~2023-12-18 | XR_ITS ---
Right Knee Technique: AP, lateral, and sunrise views were obtained. Clinical History: Pain Findings: No fracture or dislocation is seen. Osseous alignment is anatomic. There is medial compartm ent narrowing. Minimal patellar spurring noted. Soft tissues are unremarkable. No joint effusion is s een. Impression: Mild degenerative change, as above. Reviewed, dictated and finalized at location M. LRY TECHNICIAN Impression: Mild degenerative change, as above.
--- NOTE | ~2023-12-18 | XR_ITS ---
Left Knee Technique: AP, lateral, and sunrise views were obtained. Clinical History: Pain Findings: No fracture or dislocation is seen. Osseous alignment is anatomic. Probable mild medial com partment narrowing. Soft tissues are unremarkable. No joint effusion is seen. Impression: Mild degenerative change, as above. Reviewed, dictated and finalized at [facility]. ORAL MINISTRIES PROFESSOR Impression: Mild degenerative change, as above.
== END 2023-12-18 09:33 ==
LOC: MICIMG 09:34
PROVIDERS: PCP Orthopaedic Surgery; Visit Provider Orthopaedic Surgery
DX: M25.561 Pain in right knee (principal); M25.562 Pain in left knee
CPT/HCPCS: 73562

== ENCOUNTER 2024-01-09 14:45 | Outpatient (RCR) | payer OTHER, SELFPAY ==
--- NOTE | 2024-01-09 16:25 | PTOPEVAL1 ---
Assessment and note entered by Charli Johnson, PT Evaluation Information Assessment Status Evaluation Diagnosis Right shoulder lesions, Right shoulder pain, arm weakness Onset November 2023 Subjective Information Reports that he had an injection in his right shoulder and since has been doing better. He states that he still feels weak but pain is reducing. He gets pain if her tries to push or pull too much. From a functional standpoint he is still struggling with lifting but getting dressed and grooming is much better. He is once again able to sleep on his shoulder. He is still an active golfer. Overall feels he has likely bee weak for a while but has not been as active as he used to be with lifting. Reported Pain Level Pain Score 1: Self Report Assessment PT Clinical Summary Patient presents with sigs and symptoms consistent with rotator cuff tendonitis and possible impingement. Strength deficits are not severe enough to assume rotator cuff tear and he reacted very positively to cortisone injection with significant decrease in pain. He will benefit from skilled therapy to address ROM and strength deficits to maximize functional ability. Plan of Care Interventions Hot Pack/Cold Pack,Manual Therapy,Neuro Re- education,Therapeutic Activities,Therapeutic Exercise PT Services Indicated Yes Treatment Frequency and 2x/week for 8 visits Duration These treatments will address the objective and functional deficits as defined above. The patient will be advanced safely and appropriately in order for the patient to progress towards his/her prior level of function. Additional exercises will be introduced and as well as a comprehensive home exercise program upon discharge, if needed, ?to ensure carryover of functional gains achieved in the clinic. This treatment plan has been reviewed and agreement upon by the patient.
--- NOTE | 2024-01-09 16:25 | OPREHPOC ---
Outpatient Therapy Plan of Care This is a Multidisciplinary Plan of Care that may contain components documented by all disciplines (PT, OT, and ST.) PT Problem 1 PT Problem #1 Knowledge Deficit PT Goal 1 Goal [place] with HEP Target Visit 4 PT Goal 1 Goal Report no pain with 5# lift for table to chest x 10 for functional lifting improvement Target Visit 8 PT Problem 3 PT Problem #3 Impaired Strength PT Goal 1 Goal Improve R shoulder flexion strength to 4/5 to improve lifting ability with ADLs Target Visit 8 PT Goal 2 Goal Improve R shoulder external rotation strength to 4 +/5 to improve shoulder stability with ADL performance Target Visit 8 PT Problem 4 PT Problem #4 Impaired Range of Motion PT Goal 1 Goal Demonstrate 160 degrees to R shoulder flexion for improved functional reach Target Visit 8
--- NOTE | 2024-01-29 10:01 | PCPTNOTE ---
Pt canceled today and all future visits due to another critical diagnosis that needs to be addressed first.
--- NOTE | 2024-01-29 15:14 | PCPTNOTE ---
Mr. Mg contacted the clinic on 01/29/24 stating that he had developed some other health issues and would be unable to attend therapy. He will be discharged from our care at this time. Christoph Chadwick, MPT
== END 2024-01-29 16:38 | disposition home or self-care (01) ==
LOC: ANHPT 14:45
PROVIDERS: PCP Internal Medicine; Visit Provider Orthopaedic Surgery
DX: M75.81 Other shoulder lesions, right shoulder (principal)
CPT/HCPCS: 97110; 97140; 97161

== ENCOUNTER 2024-03-18 10:39 | Inpatient (IN) | payer OTHER, SELFPAY ==
[2024-03-18] VITALS (8 sets, daily range): BP systolic 112–145; BP diastolic 57–75; PULSE 57–69; RESP 15–18; TEMP 36.4–37; O2SAT 94–97; BMI 24.3
--- NOTE | ~2024-03-18 | XR_ITS ---
EXAMINATION: XR chest 2V DATE: 03/18/2024 11:46 INDICATION: Confusion. Weakness. TECHNIQUE: Frontal and lateral views of the chest were obtained. COMPARISON: Chest single view 11/21/2023 FINDINGS: There is mild atelectasis in left lower lung zone. No pleural effusion or pneumothorax. The heart size is normal. Median sternotomy wires and mediastinal surgical clips are seen, likely from p rior coronary artery bypass grafting. IMPRESSION: 1. Mild atelectasis in left lower lung zone. Reviewed, dictated and finalized at location A.
--- NOTE | ~2024-03-18 | MR_ITS ---
EXAMINATION: MR brain/brain stem wo/w con DATE: 03/19/2024 10:55 INDICATION: Brain mass. TECHNIQUE: Magnetic resonance imaging (MRI) of the brain and brainstem was performed without and with 15 mL MultiHance intravenous contrast. COMPARISON: Head CT 03/18/2024 FINDINGS: There is a 5.4 cm rim-enhancing mass involving left temporal lobe and left insula with surr ounding vasogenic edema. There is a small old infarct in left cerebellum. There is a small old infarc t in left thalamus. There is no intracranial hemorrhage or acute ischemic infarct. There are scattere d areas of nonspecific increased T2-weighted signal intensity in the cerebral white matter, likely ch ronic small vessel ischemic disease. There is 4 mm rightward midline shift. There are likely changes of ocular lens replacement surgeries. There is mild mucosal thickening in the ethmoid sinuses. The ma stoid air cells are normal. IMPRESSION: 1. 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 2. 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 Reviewed, dictated and finalized at location A. IMPRESSION: 1. 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 2. 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
--- NOTE | ~2024-03-18 | CT_ITS ---
EXAMINATION: CT brain wo con DATE: 03/18/2024 11:39 INDICATION: Altered mental status. Weakness. Confusion. TECHNIQUE: Computed tomography (CT) of the head was performed without intravenous contrast. The mA wa s adjusted according to patient size. Iterative reconstruction technique was employed. The dose-lengt h product was 681.00 mGy-cm. COMPARISON: Head CT 07/04/2008 FINDINGS: There is an ill-defined mass involving left temporal lobe measuring approximately 5 cm with surrounding vasogenic edema. There is no intracranial hemorrhage or acute ischemic infarct. There ar e areas of decreased attenuation in the right-sided cerebral white matter, likely chronic small vesse l ischemic disease. There is 6 mm rightward midline shift at the foramen of Monro. There is mass effe ct on left lateral ventricle. There are likely changes of ocular lens replacement surgeries. There is mild mucosal thickening in the paranasal sinuses. The mastoid air cells are normal. There is cerumen in the external auditory canals. IMPRESSION: 1. Ill-defined 5 cm mass in the left temporal lobe suspicious for glioblastoma or less likely HSV enc ephalitis. Brain MRI without and with contrast is recommended. Reviewed, dictated and finalized at location A. IMPRESSION: 1. Ill-defined 5 cm mass in the left temporal lobe suspicious for glioblastoma or less likely HSV encephalitis. Brain MRI without and with contrast is recomme nded.
--- NOTE | 2024-03-18 10:50 | ECG_ITS ---
[facility] [address] Test Date: 2024-03-18 Pat Name: Tevin Mg Department: Room: 347 Gender: M Eyeglass Lens Grinder: : 1935 Requested By: Adrian Dickerson Order Number: [id number] Gaetano MD: Chris Soto M.D. Measurements Intervals [place] Rate: 55 P: 69 [place]: 255 QRS: -38 QRSD: 85 T: 13 QT: 407 QTc: 391 Interpretive Statements SINUS BRADYCARDIA WITH FIRST DEGREE AV BLOCK POSSIBLE RIGHT VENTRICULAR CONDUCTION DELAY [RSR (QR) IN V1/V2] INFERIOR MYOCARDIAL INFARCTION , PROBABLY OLD [40+ ms Q WAVE AND/OR ST/T ABNORMALITY IN II/aVF] No previous ECG available for comparison Electronically Signed On 03-19-2024 13:33:53 CDT by Chris Soto M.D.
[2024-03-18 11:01] LABS: Basophils Percent Auto 0.6 % (0.2-1.2); Eosinophils Absolute Auto 0.1 K/mm3 (0-0.3); Eosinophils Percent Auto 0.8 % (0-4.4); Hematocrit 40.6 % (42.0-52.0); Hemoglobin 13.6 g/dL (14.0-18.0); Immature Granulocyte Absolute 0.02 K/mm3 (0.00-0.031); Immature Granulocyte Percent A 0.3 % (0-0.5); Lymphocytes Absolute Auto 1.92 K/mm3 (0.9-3.2); Lymphocytes Percent Auto 27.2 % (18.3-44.2); Mean Corpuscular HGB Conc 33.5 g/dl (32-36); Mean Corpuscular Hemoglobin 33.3 pg (26-34); Mean Corpuscular Volume 99.3 fl (80-100); Mean Platelet Volume 9.6 fl (7.4-10.4); Monocytes Absolute Auto 0.4 K/mm3 (0.1-0.6); Monocytes Percent Auto 5.5 % (2.6-8.5); Neutrophils Absolute Auto 4.6 K/mm3 (1.3-6.7); Neutrophils Percent Auto 65.6 % (45.5-73.1); Platelet Count Result 209 k/mm3 (150-375); Red Blood Count 4.09 M/mm3 (4.6-6.20); Red Cell Distribution Width 13.2 % (11.5-14.5); White Blood Count 7.1 K/mm3 (4.5-10.0)
[2024-03-18 11:15] LABS: Alanine Aminotransferase 14 U/L (6-50); Albumin Level 3.8 g/dL (3.5-5.1); Alkaline Phosphatase 103 U/L (38-126); Anion Gap 5 mmol/L (4-12); Aspartate Amino Transferase 23 U/L (17-59); Bilirubin,Total 1.3 mg/dL (0.2-1.3); Blood Urea Nitrogen 17 mg/dL (9-20); Calcium 9.2 mg/dL (8.4-10.2); Carbon Dioxide 28 mmol/L (22-30); Chloride 104 mmol/L (98-107); Estimated CRCL calculation 50 ml/min; Estimated Glomerular Filt Rate > 60; Glucose 159 mg/dL (65-110); Sodium 137 mmol/L (137-145)
[2024-03-18 11:20] LABS: INR 1.2; Prothrombin Time 15.3 Seconds (11.1-14.7)
[2024-03-18 11:21] LABS: Partial Thromboplastin Time 28.5 Seconds (22.3-36.8)
--- NOTE | 2024-03-18 12:04 | ED.GENADULT ---
HPI - General Adult General Chief complaint: Altered Mental Status Stated complaint: AMS Time Seen by Provider: 03/18/24 10:58 History of Present Illness HPI narrative: patient is an 80-year-old male who presents ER with new weakness. Unable to stand up out of bed today which is a new change for him. Patient has been struggling with his speech over last 6-12 weeks. He is being worked up for dementia. He is scheduled for an outpatient MRI and LP. No focal weakness of an arm or leg. No slurred speech. No forearm was. Denies fevers or chills or sweats. Related Data Home Medications Medication Instructions Recorded Confirmed allopurinol 300 mg tablet 300 mg PO DAILY 11/21/23 01/28/24 atorvastatin 80 mg tablet 80 mg PO DAILY 11/21/23 01/28/24 pantoprazole 40 mg tablet,delayed 40 mg PO QAM 11/21/23 01/28/24 release rivaroxaban 20 mg tablet (Xarelto) 20 mg PO HS 11/21/23 01/28/24 sacubitril 24 mg-valsartan 26 mg 1.5 tablet PO BID 11/21/23 01/28/24 tablet (Entresto) tamsulosin 0.4 mg capsule 0.4 mg PO HS 11/21/23 01/28/24 Allergies Allergy/AdvReac Type Severity Reaction Status Date / Time No Known Allergies Allergy Verified 01/28/24 12:54 Review of Systems Review of Systems: All systems reviewed & are unremarkable except as noted in HPI and below Constitutional: Constitutional: Reports fatigue and Reports weakness ENT: Reports system reviewed and no additional complaints, except as documented Respiratory: Respiratory: Reports no additional respiratory complaints Gastrointestinal: Gastrointestinal: Reports no additional gastrointestinal complaints Neurologic: Reports confusion, Denies headache(s), Denies focal weakness and Denies numbness [facility] Past Medical History Medical History (Reviewed 01/28/24 @ 12:56 by Dinah Mcnamara [facility] [address]) Ascending aortic aneurysm Stable 4.1 cm fusiform aneurysm of ascending aorta at the level of the main pulmonary artery noted on CT scan taken 11/21/2023; 1st seen on [address] in January 2018. Benign prostatic hyperplasia Chronic anticoagulation Coronary artery disease Gout History of heart attack Hyperlipidemia Hypertension Ischemic cardiomyopathy Paroxysmal atrial fibrillation Pneumonia due to COVID-19 virus (10/11/21) Prediabetes Surgical History Surgical History (Reviewed 01/28/24 @ 12:56 by Dinah Mcnamara [facility]) History of bilateral cataract extraction History of coronary artery bypass graft (03/2018) MARTÍNEZ to LAD, saphenous vein graft to obtuse marginal, saphenous vein graft to 1st diagonal per Dr. Kohli at [facility]. History of coronary artery stent placement History of stents to the LAD, RCA, and diagonal. History of left atrial appendage closure (2017) Left atrial appendage excision per Dr. Kohli at [facility]. Status post balloon dilatation of esophageal stricture Family History Family History (Reviewed 01/28/24 @ 12:56 by Dinah Mcnamara [facility]) Mother Acute myocardial infarction Cerebrovascular accident Hypertension Sibling Breast cancer Diabetes mellitus Social History Social History (Reviewed 12/24/23 @ 12:38 by Jeanette Smith [facility]) Social History: Surrogate medical decision maker: Cynthia Mg, . Code status: Full code. Smoking packs per day: 1 Smoking cigarettes per day: 20.0 Years smoked: 2 Smoking pack-years: 2.00 Smoking status: Former smoker Tobacco type: cigarettes Alcohol intake: current Drinks per week: 1 Substance use: never Do You Feel Safe in your Home?: Yes Lack of Transportation: No Lack of Food: Never True Current Housing: I Have Housing Concerned About Future Housing: No Difficulty Paying Gas/Electric Bills: No Difficulty Paying for Meds: No Currently Unemployed: No Education: Associate Degree Difficulty w/ Childcare or Family Care: No Living arrangements: with family Occupation/Education: retired Additional occupation/education comments: Retired.
[2024-03-18] MEDS: ACYCLOVIR SODIUM IVPB 750 MG in DEXTROSE 5% IN WATER 250 ML 250 MG IVPB ×2 (12:11→21:52)
[2024-03-18] MEDS: dexAMETHasone SOD PHOS INJ 10 MG/ML 1 ML VIAL IV PUSH (12:55)
--- NOTE | 2024-03-18 13:38 | ADMGEN ---
This patient, Tevin Mg, was admitted to Medical Room 347-01. Patient/family oriented to hospital policies and general routines including ID bracelet, bed and alarms, visiting hours, pain management, procedures, bathroom and other care routines, personal items, smoking policy, room service/diet, and visiting hours. Information on how to activate the Rapid Response Team has been discussed. Patient/Family are encouraged to report perceived risks to care and to ask questions if they do not understand what they are told or what they should do.
--- NOTE | 2024-03-18 15:31 | PM.IMHP ---
H&P: HPI History of Present Illness Date/Time: 03/18/24 15:31 Chief Complaint: Altered mental status Narrative: 88yo male with BPH, HTN, pAFib on anticoagulation, HTN and CAD here for altered mental status. Patient states he is here after a fall where he went down on his knees and had trouble getting up. He denies LOC, head injury or symptoms prior to the event. No injury. Complete ROS completed and only states that he has had decreased appetite and decreased UOP but no other complaints. He is alert but confused so hx unreliable. Left message with . Discussed with son who is a physician: Patient was doing well until about 6-8 moths when it was noticed that he was slowing down mentally. Symptoms worsened with dysarthria about 2-3 months ago. Confusion has worsened and was developing tremors. He followed up with his doctor and workup with blood work was unrevealing but no imaging performed. His appetite has with weight loss 20-25#. Aricept was started 5 weeks ago without much improvement. Saw Neurology recently with plans for MRI and LP but weakness has worsened with lethargic and apathetic that prompted him to present to the ED. Lexapro was started 4 days ago given a concern for depression. In the ED, he was hemodynamically stable. CBC normal except for Hgb 13.6. CMP normal except for a nonfasting glucose of 159. Anemia workup performed. UA ordered but not collected. CXR showing atelectasis otherwise clear. 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 Brain MRI recommended. He was started on dexamethasone and Acyclovir. He was admitted for further care. Review of Systems Review of Systems: ROS unobtainable: Yes unobtainable due to mental status FOR[facility] Past Medical History Medical History Ascending aortic aneurysm Stable 4.1 cm fusiform aneurysm of ascending aorta at the level of the main pulmonary artery noted on CT scan taken 11/21/2023; 1st seen on CT in January 2018. Benign prostatic hyperplasia Chronic anticoagulation Coronary artery disease Gout History of heart attack Hyperlipidemia Hypertension Ischemic cardiomyopathy Paroxysmal atrial fibrillation Pneumonia due to COVID-19 virus (10/11/21) Prediabetes Surgical History Surgical History History of bilateral cataract extraction History of coronary artery bypass graft (03/2018) MARTÍNEZ to LAD, saphenous vein graft to obtuse marginal, saphenous vein graft to 1st diagonal per Dr. Kohli at [facility]. History of coronary artery stent placement History of stents to the LAD, RCA, and diagonal. History of left atrial appendage closure (2017) Left atrial appendage excision per Dr. Kohli at [facility]. Status post balloon dilatation of esophageal stricture Family History Family History Mother Acute myocardial infarction Cerebrovascular accident Hypertension Sibling Breast cancer Diabetes mellitus Social History Social History Social History: Surrogate medical decision maker: Cynthia Mg, . Code status: Full code. Smoking packs per day: 1 Smoking cigarettes per day: 20.0 Years smoked: 2 Smoking pack-years: 2.00 Smoking status: Former smoker Tobacco type: cigarettes Alcohol intake: current Drinks per week: 1 Substance use: never Do You Feel Safe in your Home?: Yes Lack of Transportation: No Lack of Food: Never True Current Housing: I Have Housing Concerned About Future Housing: No Difficulty Paying Gas/Electric Bills: No Difficulty Paying for Meds: No Currently Unemployed: No Education: Associate Degree Difficulty w/ Childcare or Family Care: No Living arrangements:
[2024-03-18 16:38] LABS: Folic Acid 12.8 ng/mL (2.76->20)
[2024-03-18 17:15] LABS: Iron 45 ug/dL (49-181)
[2024-03-18 17:25] LABS: Percent Iron Saturation 15 % (20-50)
[2024-03-18] MEDS: dexAMETHasone SOD PHOS INJ 4 MG/ML VIAL IV PUSH ×2 (17:40→23:59)
[2024-03-18 20:56] LABS: Appearance Urine Cloudy (Clear); Bacteria Urine Rare /hpf; Bilirubin Urine 1+ (Negative); Blood Urine 3+ (Negative); Color Urine Dark Yellow (Yellow); Glucose Urine UA 3+ mg/dL (Negative); Ketones Urine Trace mg/dL (Negative); Leukocyte Esterase Ur 1+ LEU/UL (Negative); Nitrate Urine Negative (Negative); Non Pathogenic Casts 0-2; Protein Urine 1+ mg/dL (Negative); RBC Urine >100 /hpf (0-2); Squamous Epithelial Cell Urine Occasional /hpf (Few); WBC Urine 21-50 /hpf (0-3); pH Urine 5.5 (5.0-9.0)
[2024-03-18 20:57] LABS: Add Urine Microscopic? YES; Specific Grav Ur 1.036 (1.001-1.035)
[2024-03-18] MEDS: TAMSULOSIN HCL 0.4 MG CAPSULE PO (21:52)
[2024-03-19] VITALS (8 sets, daily range): BP systolic 119–136; BP diastolic 54–65; PULSE 50–67; RESP 16–18; TEMP 36.2–36.6; O2SAT 95–96; BMI 24.3
[2024-03-19 05:20] LABS: Basophils Percent Auto 0.1 % (0.2-1.2); Hematocrit 41.4 % (42.0-52.0); Hemoglobin 13.9 g/dL (14.0-18.0); Immature Granulocyte Absolute 0.03 K/mm3 (0.00-0.031); Immature Granulocyte Percent A 0.4 % (0-0.5); Lymphocytes Absolute Auto 1.09 K/mm3 (0.9-3.2); Lymphocytes Percent Auto 13.1 % (18.3-44.2); Mean Corpuscular HGB Conc 33.6 g/dl (32-36); Mean Corpuscular Hemoglobin 32.9 pg (26-34); Mean Corpuscular Volume 98.1 fl (80-100); Mean Platelet Volume 9.2 fl (7.4-10.4); Monocytes Absolute Auto 0.1 K/mm3 (0.1-0.6); Monocytes Percent Auto 1.1 % (2.6-8.5); Neutrophils Absolute Auto 7.1 K/mm3 (1.3-6.7); Neutrophils Percent Auto 85.3 % (45.5-73.1); Platelet Count Result 207 k/mm3 (150-375); Red Blood Count 4.22 M/mm3 (4.6-6.20); Red Cell Distribution Width 12.9 % (11.5-14.5); White Blood Count 8.3 K/mm3 (4.5-10.0)
[2024-03-19] MEDS: ACYCLOVIR SODIUM IVPB 750 MG in DEXTROSE 5% IN WATER 250 ML 250 MG IVPB ×2 (05:30→13:58)
[2024-03-19] MEDS: dexAMETHasone SOD PHOS INJ 4 MG/ML VIAL IV PUSH ×3 (05:32→17:57)
[2024-03-19 05:33] LABS: Anion Gap 8 mmol/L (4-12); Blood Urea Nitrogen 18 mg/dL (9-20); Calcium 9.2 mg/dL (8.4-10.2); Carbon Dioxide 25 mmol/L (22-30); Chloride 101 mmol/L (98-107); Estimated CRCL calculation 50 ml/min; Estimated Glomerular Filt Rate > 60; Glucose 164 mg/dL (65-110); Magnesium 1.9 mg/dL (1.6-2.3); Sodium 134 mmol/L (137-145)
[2024-03-19 06:46] LABS: Vitamin D 25 Hydroxy 34.2 ng/mL
[2024-03-19] MEDS: ATORVASTATIN 40 MG TABLET 80 MG PO (08:27)
[2024-03-19] MEDS: FERROUS SULFATE 325 MG TABLET DR PO ×2 (08:27→17:57)
[2024-03-19] MEDS: PANTOPRAZOLE 40 MG TABLET PO (08:27)
[2024-03-19] MEDS: ESCITALOPRAM OXALATE 10 MG TABLET PO (08:27)
[2024-03-19] MEDS: allopurinoL 300 MG TABLET PO (08:28)
--- NOTE | 2024-03-19 09:52 | PDONCCN ---
HPI - Date of Consult Date/Time: 03/19/24 12:30 <Roosevelt Baez - 03/19/24 12:32> 03/19/24 09:52 <Julia Turcios - 03/19/24 10:05> Requesting Physician: Brodie Yuen MD <Roosevelt Baez - 03/19/24 12:32> Brodie Yuen MD <Julia Turcios - 03/19/24 10:05> Primary Care Provider: Mauricio De La Fuente, <Roosevelt Baez - 03/19/24 12:32> Mauricio McgovernMD <Julia Turcios - 03/19/24 10:05> - Consult Narrative Reason for consult: Glioblastoma <Julia Turcios - 03/19/24 10:12> Narrative: Tevin Mg is a 88 year old male <Roosevelt Baez - 03/19/24 12:32> Tevin Mg is a 88 year old male with a past medical history of BPH, HTN, Abib, CAD, who presented to the ED after a fall. He denies any loss of consciousness or injury. He has noticed he has become progressively weaker over the last couple of months. Per chart review, he has also had confusion, dysarthria, weight loss, and weakness. He was put on antidepressant medication as it was thought to be depression. He was also going to see neurology for a possible brain MRI and spinal tap in the upcoming weeks. Head CT scan was completed here and is concerned for a 5cm mass in L temporal lobe concerning for a glioblastoma vs HSV encephalitis. Brain MRI has been ordered and pending. Currently being treated with antiviral medications as well. He reports poor energy, weight loss of ~25lbs with a poor appetite, denies headaches, blurry vision, or unilateral weakness. He also denies any history of anemia. Labs are notable for WBC 8.3, Hgb 13.9, Hct 41.4, Plt 207,000. <Julia Turcios - 03/19/24 10:12> Review of Systems - Review of Systems All systems reviewed & are unremarkable except as noted in HPI and bel <Julia Turcios 03/19/24 10:07> - Neurologic Reports confusion, Reports weakness, Denies headache(s), Denies focal weakness, Denies numbness <Julia Turcios - 03/19/24 10:05> [facility] Medical History: Medical History (Last Reviewed 03/18/24 @ 15:52 by Vikash Yuen MD) Ascending aortic aneurysm Stable 4.1 cm fusiform aneurysm of ascending aorta at the level of the main pulmonary artery noted on CT scan taken 11/21/2023; 1st seen on CT in January 2018. Benign prostatic hyperplasia Chronic anticoagulation Coronary artery disease Gout History of heart attack Hyperlipidemia Hypertension Ischemic cardiomyopathy Paroxysmal atrial fibrillation Pneumonia due to COVID-19 virus Onset Date: 10/11/21 Prediabetes <Roosevelt Baez - 03/19/24 12:32> Medical History (Last Reviewed 03/18/24 @ 15:52 by Vikash Yuen MD) Ascending aortic aneurysm Stable 4.1 cm fusiform aneurysm of ascending aorta at the level of the main pulmonary artery noted on CT scan taken 11/21/2023; [address]st seen on CT in January 2018. Benign prostatic hyperplasia Chronic anticoagulation Coronary artery disease Gout History of heart attack Hyperlipidemia Hypertension Ischemic cardiomyopathy Paroxysmal atrial fibrillation Pneumonia due to COVID-19 virus Onset Date: 10/11/21 Prediabetes <Julia Turcios - 03/19/24 10:05> Surgical History: Surgical History (Last Reviewed 03/18/24 @ 15:52 by Vikash Yuen MD) History of bilateral cataract extraction History of coronary artery bypass graft Onset Date: 03/2018 MARTÍNEZ to LAD, saphenous vein graft to obtuse marginal, saphenous vein graft to 1st diagonal per Dr. Kohli at [facility]. History of coronary artery stent placement History of stents to the LAD, RCA, and diagonal. History of left atrial appendage closure Onset Date: 2017 Left atrial appendage excision per Dr. Kohli at [facility]. Status post balloon dilatation of esophageal stricture <Roosevelt Baez - 03/19/24 12:32> Surgical History (Last Reviewed 03/18/24 @ 15:52 by Vikash Yuen MD) History of bilateral cataract extraction History of coronary artery bypass gr
[2024-03-19] MEDS: levETIRAcetam 500 MG TABLET PO ×2 (13:58→20:02)
--- NOTE | 2024-03-19 16:05 | PM.IMPN ---
Progress Note: A&P Assessment and Plan (1) Mass of left temporal lobe: Code(s): G93.89 - Other specified disorders of brain Status: Acute Assessment and Plan: Patient has been having cognitive decline over the past 6 months or so. No obvious seizure-like activity. No fevers. He has weight loss from poor appetite. 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 LP not recommended given the compression of the ventricle and edema. Dexamethasone started. Acyclovir started. Brain MRI ordered. Oncology consulted. Seizure precautions. 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 Old infarcts noted left cerebellum and left thalamus. Oncology discussed options. Spoke with son who stated that the patient does not want further investigation or treatment for this potential probably cancer. Will add Keppra. Stop acyclovir. Hospice consult ordered. Stop tele. (2) Altered mental status: Code(s): R41.82 - Altered mental status, unspecified Status: Acute Assessment and Plan: Patient's mental status probably related to the enlarging cerebral mass. UA noted so consider UTI that contributed to his more acute change. Add Rocephin and followup on UCx results. Continue PT/OT (3) Hypertension: Code(s): I10 - Essential (primary) hypertension Status: Acute Assessment and Plan: Blood pressure well controlled since admission. Continue to monitor (4) Paroxysmal atrial fibrillation: Code(s): I48.0 - Paroxysmal atrial fibrillation Status: Acute Assessment and Plan: Patient with hx of AFib and is s/p left atrial appendage closure. Initially off anti-coagulation but follow-up echo showed a small stump so Cardiology recommended resuming Xarelto and patient has been back on Xaelto since and toleratiing it well. Xarelto held here due to the above findings and family wishes. (5) Ischemic cardiomyopathy: Code(s): I25.5 - Ischemic cardiomyopathy Status: Acute Assessment and Plan: Patietn with hx of CAD with stents to the LAD, RCA, and diagonal and CABG in 2017 MARTÍNEZ to LAD, saphenous vein graft to obtuse marginal, saphenous vein graft to 1st diagonal. Also with percutaneous revascularization of the diagonal branch of his LAD in October of 2021. He has an ischemic CMP. Echo in Oct 2021 showing EF 30% with Grade II diastolic dysfunction and akinetic segments with severe pulm HTN. Stable (6) Ascending aortic aneurysm: Code(s): I71.21 - Aneurysm of the ascending aorta, without rupture Status: Acute Assessment and Plan: Patient with an ascending aortic aneurysm at 4.1 cm at the level of the main pulmonary artery noted on CT scan taken 11/21/[address] in January 2018. Stable Plan DVT prophylaxis - SCDs Code status - Full Subjective Date/time seen: 03/19/24 16:05 Interval history: 88yo male with BPH, HTN, pAFib on anticoagulation, HTN and CAD here for altered mental status. Patient feels better. Eating okay. no n/v. No real complaints but states he has no 'pep'. Exam Narrative: AF 97.9 119/54 55 18 95% ra Gen - NARD Chest - few bibasilar rhonchi, nml RR CV - RRR. S1-S2. Tele showing PVCs and bigeminy Abd - soft. Nontender. Nondistended. +BS Ext - no pedal edema Neuro - patient is alert and appropriate Psych - normal mood and affect. Skin - warm and dry. Objective Data Vital Signs Vital Signs: Vital Signs - 24 hr 03/18/24 20:31 03/19/24 00:00 03/18/24 20:00 Temperature 97.6 F Pulse Rate 61 55 L 69 Respiratory Rate 18 Blood Pressure 138/75 Pulse Oximetry 97 Oxygen Delivery 03/19/24 04:51 03/18/24 20:00 03/19/24 04:00 Temperature 97.2 F L Pulse Rate 54 L 50 L Respiratory Rate 16 Blood Pressure 134/61
[2024-03-19] MEDS: TAMSULOSIN HCL 0.4 MG CAPSULE PO (20:02)
[2024-03-20] MEDS: dexAMETHasone SOD PHOS INJ 4 MG/ML VIAL IV PUSH ×5 (00:42→23:55)
[2024-03-20 05:29] VITALS: BP 152/68; PULSE 58; RESP 18; TEMP 36.4; O2SAT 97
[2024-03-20] MEDS: PANTOPRAZOLE 40 MG TABLET PO (08:44)
[2024-03-20] MEDS: ESCITALOPRAM OXALATE 10 MG TABLET PO (08:44)
[2024-03-20] MEDS: FERROUS SULFATE 325 MG TABLET DR PO ×2 (08:44→17:27)
[2024-03-20] MEDS: allopurinoL 300 MG TABLET PO (08:44)
[2024-03-20] MEDS: levETIRAcetam 500 MG TABLET PO ×2 (08:44→20:03)
[2024-03-20] MEDS: ATORVASTATIN 40 MG TABLET 80 MG PO (08:44)
--- NOTE | 2024-03-20 10:50 | PM.IMPN ---
Progress Note: A&P Assessment and Plan (1) Mass of left temporal lobe: Code(s): G93.89 - Other specified disorders of brain Status: Acute Assessment and Plan: Patient has been having cognitive decline over the past 6 months or so. No obvious seizure-like activity. No fevers. He has weight loss from poor appetite. 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 LP not recommended given the compression of the ventricle and edema. Dexamethasone started. Acyclovir started. Brain MRI ordered. Oncology consulted. Seizure precautions. 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 Old infarcts noted left cerebellum and left thalamus. Oncology discussed options. Family does not want further investigation or treatment for this potential probably cancer. Continue Keppra. Hospice consult ordered. (2) Altered mental status: Code(s): R41.82 - Altered mental status, unspecified Status: Acute Assessment and Plan: Patient's mental status probably related to the enlarging cerebral mass. UA noted so consider UTI that contributed to his more acute change. We added Rocephin but UCx negative. Continue PT/OT. Stop Rocephin (3) Hypertension: Code(s): I10 - Essential (primary) hypertension Status: Acute Assessment and Plan: Blood pressure reasonably well controlled since admission. Continue to monitor (4) Paroxysmal atrial fibrillation: Code(s): I48.0 - Paroxysmal atrial fibrillation Status: Acute Assessment and Plan: Patient with hx of AFib and is s/p left atrial appendage closure. Initially off anti-coagulation but follow-up echo showed a small stump so Cardiology recommended resuming Xarelto and patient has been back on Xaelto since and toleratiing it well. Xarelto held here due to the above findings and family wishes. (5) Ischemic cardiomyopathy: Code(s): I25.5 - Ischemic cardiomyopathy Status: Acute Assessment and Plan: Patient with hx of CAD with stents to the LAD, RCA, and diagonal and CABG in 2017 MARTÍNEZ to LAD, saphenous vein graft to obtuse marginal, saphenous vein graft to 1st diagonal. Also with percutaneous revascularization of the diagonal branch of his LAD in October of 2021. He has an ischemic CMP. Echo in Oct 2021 showing EF 30% with Grade II diastolic dysfunction and akinetic segments with severe pulm HTN. Stable. Family wishing to stop Lipitor which was done (6) Ascending aortic aneurysm: Code(s): I71.21 - Aneurysm of the ascending aorta, without rupture Status: Acute Assessment and Plan: Patient with an ascending aortic aneurysm at 4.1 cm at the level of the main pulmonary artery noted on CT scan taken 11/21/[address] in January 2018. Stable (7) Moderate malnutrition: Code(s): E44.0 - Moderate protein-calorie malnutrition Status: Acute Assessment and Plan: Patient has moderate protein calorie malnutrition as related to increased protein needs in the setting of chronic disease as evidenced by <75% of estimated protein needs >7 days and significant weight loss of 4% in 1 month. Supplements ordered. Plan is for patient to return home on hospice care Plan DVT prophylaxis - SCDs Code status - Full Subjective Date/time seen: 03/20/24 10:50 Interval history: 88yo male with BPH, HTN, pAFib on anticoagulation, HTN and CAD here for altered mental status. Patient up walking with therapy. He is alert but confused so hx unreliable. Family in the room and care plan discussed. Review of Systems Review of Systems: ROS unobtainable: Yes unobtainable due to mental status Exam Narrative: AF 97.6 152/68 58 18 97% ra Gen - NARD Chest - CTA bilaterally, nml RR CV - RRR. S1-S2 Abd - soft. Nontender. N
--- NOTE | 2024-03-20 11:45 | PCOTNOTE ---
Per RN, Patient not to be seen this A.M. Patient needs blood, low hemoglobin.
[2024-03-20] MEDS: ARTIFICIAL TEARS OPHTH SOLN 15 ML BOTTLE 1 DROP EACH EYE (12:25)
[2024-03-20 14:00] VITALS: BP 145/63; PULSE 57; RESP 16; TEMP 36.8; O2SAT 96
--- NOTE | 2024-03-20 14:45 | PCOTNOTE ---
Attempted to see Patient for afternoon treatment session. Patient verbalized, he was supposed to be discharged today, but now I'm going to be discharged home tomorrow on hospice. Patient declined to perform services this date.
[2024-03-20] MEDS: TAMSULOSIN HCL 0.4 MG CAPSULE PO (20:03)
[2024-03-20 21:38] VITALS: BP 149/62; PULSE 57; RESP 16; TEMP 36.6; O2SAT 94
[2024-03-21 06:00] VITALS: BP 178/73; PULSE 74; RESP 18; TEMP 36.6; O2SAT 97
[2024-03-21] MEDS: dexAMETHasone SOD PHOS INJ 4 MG/ML VIAL IV PUSH (06:18)
[2024-03-21] MEDS: FERROUS SULFATE 325 MG TABLET DR PO (08:05)
[2024-03-21] MEDS: dexAMETHasone 2 MG TABLET PO ×2 (08:05→12:56)
[2024-03-21] MEDS: PANTOPRAZOLE 40 MG TABLET PO (08:05)
[2024-03-21] MEDS: levETIRAcetam 500 MG TABLET PO (08:05)
[2024-03-21] MEDS: allopurinoL 300 MG TABLET PO (08:05)
[2024-03-21] MEDS: ESCITALOPRAM OXALATE 10 MG TABLET PO (08:05)
--- NOTE | 2024-03-21 14:29 | PM.DS ---
DS: Admitting Diagnosis Discharge Date 03/21/24 Admitting Diagnosis Altered mental status DS: Discharge Diagnosis Discharge Diagnosis (1) Mass of left temporal lobe: Code(s): G93.89 - Other specified disorders of brain Status: Acute (2) Altered mental status: Code(s): R41.82 - Altered mental status, unspecified Status: Acute (3) Hypertension: Code(s): I10 - Essential (primary) hypertension Status: Acute (4) Paroxysmal atrial fibrillation: Code(s): I48.0 - Paroxysmal atrial fibrillation Status: Acute (5) Ischemic cardiomyopathy: Code(s): I25.5 - Ischemic cardiomyopathy Status: Acute (6) Ascending aortic aneurysm: Code(s): I71.21 - Aneurysm of the ascending aorta, without rupture Status: Acute (7) Moderate malnutrition: Code(s): E44.0 - Moderate protein-calorie malnutrition Status: Acute DS: Summary Hospital Course Reason for hospitalization: 88yo male with BPH, HTN, pAFib on anticoagulation, HTN and CAD here for altered mental status. Please see H&P for details. Hospital Course: Patient has been having cognitive decline over the past 6 months or so. No obvious seizure-like activity. No fevers. He has weight loss from poor appetite. 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 LP not recommended given the compression of the ventricle and edema. Dexamethasone started. Acyclovir started. Brain MRI ordered. Oncology consulted. Seizure precautions. 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 Old infarcts noted left cerebellum and left thalamus. Oncology discussed options. Family does not want further investigation or treatment for this potential probably cancer. Keppra was added. Hospice consulted. Patient was discharged home with hospice on 03/21/24 Status at Discharge Cognitive/behavioral status at discharge: stable Time Spent with Patient Time attestation: Total time spent providing and/or coordinating discharge services: 32 minutes Time spent: Greater than 30 minutes Exam Narrative: AF 97.8 178/73 74 18 97% ra Gen - NARD Chest - CTA bilaterally, nml RR CV - RRR. S1-S2 Abd - soft. Nontender. Nondistended. +BS Ext - no pedal edema Psych - normal mood and affect. Skin - warm and dry. Discharge Plan Discharge Attending physician on discharge: Vikash Yuen Consulting providers: Roosevelt Baez Discharging Clinician: Vikash Yuen Anticipated Discharge Date/Time: 03/21/24 14:51 Patient Disposition: Hospice - Home Activity: as tolerated Diet: as tolerated Discharge Instructions: Hospice to meet you at home. Patient Instructions: Antibiotic Form Stand Alone Forms: General Discharge Information Discharge Medications: New levetiracetam [Keppra] 500 mg Tablet 500 mg PO Q12HR Qty: 60 0RF dexamethasone 2 mg Tablet 2 mg PO TID Qty: 90 0RF Continued tamsulosin 0.4 mg Capsule 0.4 mg PO HS pantoprazole 40 mg Tablet,Delayed Release (Dr/Ec) 40 mg PO QAM allopurinol 300 mg tablet 300 mg PO DAILY Entresto 24-26 mg Tablet 1.5 tablet PO BID escitalopram oxalate 10 mg tablet 10 mg PO DAILY Discontinued Xarelto 20 mg tablet 20 mg PO HS Rx Instructions: with evening meal atorvastatin 80 mg tablet 80 mg PO DAILY Date of admission: 03/19/24 13:17 Primary Care Provider: Sudhakar,Mauricio Talamantes Admitting Provider: Vikash Yuen Attending physician on admission: Vikash Yuen Condition: Serious
[2024-03-23 06:24] LABS: Methylmalonic Acid 263 nmol/L (87-318)
[2024-03-26 11:34] LABS: Soluble Transferrin Receptor 1.21 mg/L (0.76-1.76)
== END 2024-03-21 15:52 | disposition hospice, home (50) | DRG 55 ==
LOC: ANHED 10:58 → ANH3MED 13:24
PROVIDERS: Nurse Practitioner Family; Admitting Provider Internal Medicine; Emergency Provider Emergency Medicine; PCP Internal Medicine; Visit Provider Internal Medicine
DX: C71.2 Malignant neoplasm of temporal lobe (principal); E44.0 Moderate protein-calorie malnutrition; I71.21 Aneurysm of the ascending aorta, without rupture; I25.10 Atherosclerotic heart disease of native coronary artery without angina pectoris; I25.5 Ischemic cardiomyopathy; I48.0 Paroxysmal atrial fibrillation; I10 Essential (primary) hypertension; R73.03 Prediabetes; E78.5 Hyperlipidemia, unspecified; N40.0 Benign prostatic hyperplasia without lower urinary tract symptoms; M10.9 Gout, unspecified; I25.2 Old myocardial infarction; Z79.01 Long term (current) use of anticoagulants; Z95.1 Presence of aortocoronary bypass graft; Z95.5 Presence of coronary angioplasty implant and graft; Z87.891 Personal history of nicotine dependence; Z51.5 Encounter for palliative care; Z86.73 Personal history of transient ischemic attack (TIA), and cerebral infarction without residual deficits
CPT/HCPCS: 36415; 70450; 70553; 71046; 80048; 80053; 81001; 82306; 82607; 82728; 82746; 83540; 83550; 83735; 83921; 84238; 85025; 85610; 85730; 87086; 87088; 93005; 96365; 96375; 97110; 97116; 97161; 97165; 99285; A9270; A9577; J0133; J0696; J1100; J7060; J8540